=== PATIENT | male | born 1990 | race Caucasian/White ===

== ENCOUNTER 2017-04-03 15:29 | Inpatient (IN) | payer MEDICAID, OTHER ==
[~2017-04-03] VITALS: Ht 180.3 cm; Wt 96.7 kg
[2017-04-03] VITALS (27 sets, daily range): BP systolic 93–177; BP diastolic 55–111; PULSE 78–178; RESP 14–26; TEMP 98.6–100.7; O2SAT 95–100
[~2017-04-03 15:29] MED LIST: AMOX500T PO; Z.0.NO CURRENT MEDS
[2017-04-03] MEDS ORDERED: SODIUM CHLOR 0.9% 1000 ML INJ 1,000 ML IV ONE ×3 (15:41→17:15)
[2017-04-03] MEDS ORDERED: SODIUM CHLORIDE 0.9% FLUSH 10 ML FLUSH IVF PRN (15:45)
[2017-04-03] MEDS ORDERED: LORazepam 2 MG/ML VIAL IV PUSH ONE ×2 (15:45→16:00)
--- NOTE | 2017-04-03 15:50 | PD ---
HPI Chief Complaint: OD/ Ingestion Time Seen by Provider: 15:30 Travel History International Travel<30 days: No Contact w/Intl Traveler<30days: No Traveled to known affect area: No History of Present Illness HPI Patient comes in under [place] act by police after having a witnessed ingestion of unknown pills during a video snap chat with patient's . Please report this occurred about 1 hour prior to arrival. Patient became combative en route causing an abrasion to his right forehead. Patient is been vomiting. Patient is somewhat confused but is able to answer questions and knows he is at [place]. Please report that patient was found with a full bottle of generic Benadryl along 17 additional pills with no bottle round. It is suspected the patient took eighty-three 25 mg Benadryl's that were missing. [facility], [facility] Past Medical History Medical History: Denies Significant Hx Psychiatric: Yes Tetanus Vaccination: < 5 Years Past Surgical History Surgical History: No Previous Surgery Social History Alcohol Use: No Tobacco Use: No Substance Use: Yes (pot) Allergies-Medications (Allergen,Severity, Reaction): Coded Allergies: Sulfa (Sulfonamide Antibiotics) (Unverified Allergy, Severe, CHILDHOOD, CAN'T REMEMBER, 04/03/17) Reported Meds & Prescriptions Reported Meds & Active Scripts Active No Active Prescriptions or Reported Medications Review of Systems ROS Limitations: Altered Mental Status Except as stated in HPI: all other systems reviewed are Neg Physical Exam Exam Limitations: Altered Mental Status Narrative GENERAL: Well-developed, overly nourished, in no acute distress, and non-ill appearing. SKIN: Focused skin assessment warm and dry. Abrasion with small hematoma noted right forehead. HEAD: Atraumatic. Normocephalic. EYES: Pupils equal and round. EOMI. No scleral icterus. No injection or drainage. Nystagmus noted in all directions. ENT: No nasal bleeding or discharge. Mucous membranes pink and moist. NECK: Trachea midline. Supple. No nuclear rigidity. CARDIOVASCULAR: Tachycardia rate and rhythm. No murmur appreciated. RESPIRATORY: No accessory muscle use. No respiratory distress. Clear to auscultation. Breath sounds equal bilaterally. GASTROINTESTINAL: Abdomen soft, non-tender, nondistended, and no guarding. Hepatic and splenic margins not palpable. Normal bowel sounds 4. No pulsatile mass. MUSCULOSKELETAL: No obvious deformities. No clubbing. No cyanosis. No edema. Full range of motion. NEUROLOGICAL: Awake and alert. No obvious cranial nerve deficits. Motor grossly within normal limits. Slurring speech. Data Data Last Documented VS Vital Signs Date Time Temp Pulse Resp B/P Pulse Ox O2 Delivery O2 Flow Rate FiO2 04/03/17 18:17 99.0 118 20 153/92 99 04/03/17 16:00 Nasal Cannula 2 Orders Electrocardiogram (04/03/17 15:41) Complete Blood Count With Diff (04/03/17 15:41) Comprehensive Metabolic Panel (04/03/17 15:41) Prothrombin Time / Inr (Pt) (04/03/17 15:41) Act Partial Throm Time (Ptt) (04/03/17 15:41) Ct Brain W/O Iv Contrast(Rout) (04/03/17 15:41) Blood Glucose (04/03/17 15:41) Iv Access Insert/Monitor (04/03/17 15:41) Ecg Monitoring (04/03/17 15:41) Oximetry (04/03/17 15:41) Psych Screen (04/03/17 15:41) Sodium Chloride 0.9% Flush (Ns Flush) (04/03/17 15:45) Sodium Chlor 0.9% 1000 Ml Inj (Ns 1000 M (04/03/17 15:41) Call Poison Control (04/03/17 15:41) Drug Screen, Random Urine (04/03/17 15:41) Alcohol (Ethanol) (04/03/17 15:41) Salicylates (Aspirin) (04/03/17 15:41) Tylenol (Acetaminophen) (04/03/17 15:41) Lorazepam Inj (Ativan Inj) (04/03/17 15:45) Sodium Chlor 0.9% 1000 Ml Inj (Ns 1000 M (04/03/17 16:00) Lorazepam Inj (Ativan Inj) (04/03/17 16:00) Sodium Chlor 0.9% 1000 Ml Inj (Ns 1000 M (04/03/17 17:15) Potassium Chlor 20 Meq Premix (Kcl 20 Me (04/03/17 17:15) Admit Order (Ed Use Only) (04/03/17 18:16) Labs Laboratory Tests Test 04/03/17 04/03/17 04/03/17 14:10 16:00 16:30 Salicylates Level LESS THAN 1.7 MG/DL White Blood Count 16.9 TH/MM3 Red Blood Count 5.23 MIL/MM3 Hemoglobin 15.3 GM/DL Hematocrit 43.9 % Mean Corpuscular Volume 83.8 FL Mean Corpuscular Hemoglobin 29.3 PG Mean Corpuscular Hemoglobin 34.9 % Concent Red Cell Distribution Width 14.5 % Platelet Count 540 TH/MM3 Mean Platelet Volume 7.8 FL Neutrophils (%) (Auto) 67.2 % Lymphocytes (%) (Auto) 23.7 % Monocytes (%) (Auto) 8.5 % Eosinophils (%) (Auto) 0.3 % Basophils (%) (Auto) 0.3 % Neutrophils # (Auto) 11.4 TH/MM3 Lymphocytes # (Auto) 4.0 TH/MM3 Monocytes # (Auto) 1.4 TH/MM3 Eosinophils # (Auto) 0.1 TH/MM3 Basophils # (Auto) 0.1 TH/MM3 CBC Comment DIFF FINAL Differential Comment Prothrombin Time 11.0 SEC Prothromb Time International 1.0 RATIO Ratio Activated Partial 23.4 SEC Thromboplast Time Sodium Level 136 MEQ/L Potassium Level 3.1 MEQ/L Chloride Level 103 MEQ/L Carbon Dioxide Level 18.8 MEQ/L Anion Gap 14 MEQ/L Blood Urea Nitrogen 11 MG/DL Creatinine 1.56 MG/DL Estimat Glomerular Filtration 54 ML/MIN Rate Random Glucose 128 MG/DL Calcium Level 8.9 MG/DL Total Bilirubin 0.6 MG/DL Aspartate Amino Transf 16 U/L (AST/SGOT) Alanine Aminotransferase 32 U/L (ALT/SGPT) Alkaline Phosphatase 63 U/L Total Protein 8.5 GM/DL Albumin 4.4 GM/DL Acetaminophen Level LESS THAN 2.0 MCG/ML Ethyl Alcohol Level LESS THAN 3 MG/DL Urine Opiates Screen NEG Urine Barbiturates Screen NEG Urine Amphetamines Screen NEG Urine Benzodiazepines Screen NEG Urine Cocaine Screen NEG Urine Cannabinoids Screen POS MDM Medical Decision Making Medical Screen Exam Complete: Yes Emergency Medical Condition: Yes Interpretation(s) CT of the head read by the radiologist shows: Scalp hematoma. EKG reviewed by Dr. Rae shows SVT with ventricular rate of 172. Differential Diagnosis Intentional drug overdose, accidental overdose, electrolyte abnormality, other Narrative Course Patient was seen and examined. IV was established. Initial laboratory radiologic studies were ordered. 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 1550 discussed patient with Viola at poison control who recommends recommend supportive control with benzo and fluids. Along with checking labs. After speaking with poison control patient was given Ativan and IV fluids. Discussed patient with Dr. Rae, who saw and evaluated the patient and is in agreement with plan of care and disposition. 1630 patient reassessed vital signs are improving. 1700 patient reassessed her is improved. Nystagmus is improved. Patient is not answering questions currently. Responds to stimuli and light. Physician Communication Physician Communication [address] Corral, home health care worker on-call, who is agreeable to admit the patient. Diagnosis Primary Impression: Intentional diphenhydramine overdose Qualified Code: T45.0X2A - Intentional diphenhydramine overdose, initial encounter Admitting Information Admitting Physician Requests: Admit Scripts No Active Prescriptions or Reported Meds Condition: John Naik Apr 03, 2017 15:50
[2017-04-03 16:20] LABS: AUTOMATED NEUTROPHIL # 11.4 TH/MM3 (1.8-7.7); BASOPHIL # 0.1 TH/MM3 (0-0.2); BASOPHIL % 0.3 % (0.0-2.0); EOSINOPHIL # 0.1 TH/MM3 (0-0.4); EOSINOPHIL % 0.3 % (0.0-4.0); HEMATOCRIT 43.9 % (39.0-51.0); HEMO FLAGS DIFF FINAL; LYMPH % 23.7 % (9.0-44.0); MEAN CELL VOLUME 83.8 FL (80.0-100.0); MEAN CORPUSCULAR HEMOGLOBIN 29.3 PG (27.0-34.0); MEAN CORPUSCULAR HGB CONC 34.9 % (32.0-36.0); MONO % 8.5 % (0.0-8.0); NEUT % 67.2 % (16.0-70.0); PLATELET COUNT 540 TH/MM3 (150-450); RED BLOOD COUNT 5.23 MIL/MM3 (4.50-5.90); RED CELL DISTRIBUTION WIDTH 14.5 % (11.6-17.2); WHITE BLOOD COUNT 16.9 TH/MM3 (4.0-11.0)
[2017-04-03 16:28] LABS: APTT (PATIENT) 23.4 SEC (24.3-30.1)
[2017-04-03 16:42] LABS: ANION GAP 14 MEQ/L (5-15)
[2017-04-03 16:47] LABS: ALKALINE PHOSPHATASE 63 U/L (45-117); ALT (GPT) 32 U/L (12-78); AST (GOT) 16 U/L (15-37); BICARBONATE 18.8 MEQ/L (21.0-32.0); BLOOD UREA NITROGEN 11 MG/DL (7-18); CHLORIDE 103 MEQ/L (98-107); GLOMERULAR FILTRATION RATE 54 ML/MIN (>89); POTASSIUM 3.1 MEQ/L (3.5-5.1); SODIUM (NA) 136 MEQ/L (136-145); TOTAL BILIRUBIN ADULT 0.6 MG/DL (0.2-1.0)
[2017-04-03 16:51] LABS: ACETAMINOPHEN LESS THAN 2.0 MCG/ML (10.0-30.0); ALCOHOL LESS THAN 3 MG/DL (0-5)
[2017-04-03] MEDS ORDERED: POTASSIUM CHLOR 20 MEQ PREMIX 100 ML IV ONE (17:15)
--- NOTE | 2017-04-03 17:46 | RADRPT ---
EXAM DATE/TIME: 04/03/2017 17:21 [facility] COMPARISON: No previous studies available for comparison. INDICATIONS : Altered mental status RADIATION DOSE: 38.60 CTDIvol (mGy) MEDICAL HISTORY : None SURGICAL HISTORY : None. ENCOUNTER: Initial ACUITY: 1 day PAIN SCALE: Non-responsive LOCATION: cranial TECHNIQUE: Multiple contiguous axial images were obtained of the head. Using automated exposure control and adj ustment of the mA and/or kV according to patient size, radiation dose was kept as low as reasonably a chievable to obtain optimal diagnostic quality images. DICOM format image data is available electro nically for review and comparison. FINDINGS: There is no evidence for intracranial hemorrhage, mass effect, mass lesions, edema, or extra-axial fl uid collections. The visualized bony structures appear intact. The ventricles are normal size for t he patient's age. There are no signs of acute infarction for technique. There is scalp hematoma in t he right anterior frontal parietal junction. CONCLUSION: Scalp hematoma. Mario Betts MD on April 03, 2017 at 17:43 Board Certified Radiologist. This report was verified electronically.
--- NOTE | 2017-04-03 17:49 | PD ---
Physical Exam Narrative I, Dr. Rae, have reviewed the advance practice practitioner's documentation and am in agreement, met with the patient face to face, made the diagnosis, and the medical decision making was done by me. *My assessment and Findings: Benadryl overdose with anticholinergic toxidrome 26yo M with intentional benadryl overdose. Pt tachycardic, confused and hot to touch. IVF NS and ativan given. Total of 2mg IV ativan and NS IVF x3 given. Poison control called and recommended symptomatic treatment and benzodiazepine. Heart rate improved from 170s to sinus tachycardia in the 116bpm after NS IVF. Pt is currently maintaining his airway and saturating at 99%. Pt is confused but answering questions and following commands. Pt will need ICU monitoring and continue supportive treatment. Labs reviewed, leukocytosis at 16.9, likely reactive. K: 3.1, replaced with 20mE1 KCl. CT brain showed scalp hematoma. Pt was accepted to ICU under . Dr. Corral came to evaluate the patient and recommends endotracheal intubation. I agreed with his plan. Pt was intubated in the ED with RSI. Data Data Last Documented VS Vital Signs Date Time Temp Pulse Resp B/P (MAP) Pulse Ox O2 Delivery O2 Flow Rate FiO2 04/03/17 18:17 99.0 118 20 153/92 (112) 99 04/03/17 16:00 Nasal Cannula 2 Orders Orders Electrocardiogram (04/03/17 15:41) Complete Blood Count With Diff (04/03/17 15:41) Comprehensive Metabolic Panel (04/03/17 15:41) Prothrombin Time / Inr (Pt) (04/03/17 15:41) Act Partial Throm Time (Ptt) (04/03/17 15:41) Ct Brain W/O Iv Contrast(Rout) (04/03/17 15:41) Blood Glucose (04/03/17 15:41) Iv Access Insert/Monitor (04/03/17 15:41) Ecg Monitoring (04/03/17 15:41) Oximetry (04/03/17 15:41) Psych Screen (04/03/17 15:41) Sodium Chloride 0.9% Flush (Ns Flush) (04/03/17 15:45) Sodium Chlor 0.9% 1000 Ml Inj (Ns 1000 M (04/03/17 15:41) Call Poison Control (04/03/17 15:41) Drug Screen, Random Urine (04/03/17 15:41) Alcohol (Ethanol) (04/03/17 15:41) Salicylates (Aspirin) (04/03/17 15:41) Tylenol (Acetaminophen) (04/03/17 15:41) Lorazepam Inj (Ativan Inj) (04/03/17 15:45) Sodium Chlor 0.9% 1000 Ml Inj (Ns 1000 M (04/03/17 16:00) Lorazepam Inj (Ativan Inj) (04/03/17 16:00) Sodium Chlor 0.9% 1000 Ml Inj (Ns 1000 M (04/03/17 17:15) Potassium Chlor 20 Meq Premix (Kcl 20 Me (04/03/17 17:15) Admit Order (Ed Use Only) (04/03/17 18:16) Labs Laboratory Tests Test 04/03/17 14:10 04/03/17 16:00 04/03/17 16:30 Salicylates Level LESS THAN 1.7 MG/DL White Blood Count 16.9 TH/MM3 Red Blood Count 5.23 MIL/MM3 Hemoglobin 15.3 GM/DL Hematocrit 43.9 % Mean Corpuscular Volume 83.8 FL Mean Corpuscular Hemoglobin 29.3 PG Mean Corpuscular Hemoglobin Concent 34.9 % Red Cell Distribution Width 14.5 % Platelet Count 540 TH/MM3 Mean Platelet Volume 7.8 FL Neutrophils (%) (Auto) 67.2 % Lymphocytes (%) (Auto) 23.7 % Monocytes (%) (Auto) 8.5 % Eosinophils (%) (Auto) 0.3 % Basophils (%) (Auto) 0.3 % Neutrophils # (Auto) 11.4 TH/MM3 Lymphocytes # (Auto) 4.0 TH/MM3 Monocytes # (Auto) 1.4 TH/MM3 Eosinophils # (Auto) 0.1 TH/MM3 Basophils # (Auto) 0.1 TH/MM3 CBC Comment DIFF FINAL Differential Comment Prothrombin Time 11.0 SEC Prothromb Time International Ratio 1.0 RATIO Activated Partial Thromboplast Time 23.4 SEC Blood Urea Nitrogen 11 MG/DL Creatinine 1.56 MG/DL Random Glucose 128 MG/DL Total Protein 8.5 GM/DL Albumin 4.4 GM/DL Calcium Level 8.9 MG/DL Alkaline Phosphatase 63 U/L Aspartate Amino Transf (AST/SGOT) 16 U/L Alanine Aminotransferase (ALT/SGPT) 32 U/L Total Bilirubin 0.6 MG/DL Sodium Level 136 MEQ/L Potassium Level 3.1 MEQ/L Chloride Level 103 MEQ/L Carbon Dioxide Level 18.8 MEQ/L Anion Gap 14 MEQ/L Estimat Glomerular Filtration Rate 54 ML/MIN Phosphorus Level 2.0 MG/DL Magnesium Level 2.1 MG/DL Total Creatine Kinase 108 U/L Acetaminophen Level LESS THAN 2.0 MCG/ML Ethyl Alcohol Level LESS THAN 3 MG/DL Urine Opiates Screen NEG Urine Barbiturates Screen NEG Urine Amphetamines Screen NEG Urine Benzodiazepines Screen NEG Urine Cocaine Screen NEG Urine Cannabinoids Screen POS MDM Supervised Visit with KATYA: Yes Interpretation(s) EKG showed SVT at 172bpm. Narrow QRS. However, pt's heart rate was improving on the IVF to 140s. Critical Care Narrative Aggregate critical care time was 60 minutes. Time to perform other separately billable procedures was not included in the critical care time. My time did not include minutes spent treating any other patients simultaneously or on activities that did not directly contribute to the patient's treatment. The services I provided to this patient were to treat and/or prevent clinically significant deterioration that could result in: cardiovascular collapse or . I provided critical care services requiring my management, as noted below: Chart data review, documentation time, medication orders and management, vital sign assessments/reviewing monitor data, ordering and reviewing lab tests, ordering and interpreting/reviewing x-rays and diagnostic studies, care of the patient and discussion of the patient with the admitting physicians. Procedures Procedure Narrative The patient was put in optimal position for the procedure. Rapid sequence intubation was initiated by me using 30 milligrams of etomidate IV and 50milligrams of rocuronium IV. The patient was intubated with a [-] cuffed endotracheal tube. Tube placement was confirmed by visualization of the tube and balloon passing through the cords, capnometry and subsequent chest x-ray. Breath sounds were equal and well aerated bilaterally postintubation. No breath sounds over stomach. Patient tolerated procedure well. Diagnosis Primary Impression: Intentional diphenhydramine overdose Admitting Information Admitting Physician Requests: Admit Scripts No Active Prescriptions or Reported Meds Estrellita Rae DO Apr 03, 2017 17:49
[2017-04-03] MEDS ORDERED: RESP: ALBUTEROL 2.5 MG/IPRATROPIUM 0.5 MG NEB (PRN) INH (18:45)
[2017-04-03] MEDS ORDERED: CHLORHEXIDINE GLUCONATE 2 % 1 PACK (2 CLOTHS) TOP PRN (18:45)
[2017-04-03] MEDS ORDERED: LORazepam 2 MG/ML VIAL IV PRN (18:45)
[2017-04-03] MEDS ORDERED: MORPHINE SULFATE 4 MG/ML INJ IV PRN (18:45)
[2017-04-03] MEDS ORDERED: LACTULOSE SYRUP 20 GM/30 ML CUP PO PRN (18:45)
[2017-04-03] MEDS ORDERED: MISCELLANEOUS NURSING INFORMATION XX SCH (18:45)
[2017-04-03] MEDS ORDERED: BISACODYL 10 MG SUPP RECTAL PRN (18:45)
[2017-04-03] MEDS ORDERED: SENNOSIDES 8.6 MG TAB PO PRN (18:45)
[2017-04-03] MEDS ORDERED: MAGNESIUM HYDROXIDE SUSP 30 ML CUP PO PRN (18:45)
[2017-04-03] MEDS ORDERED: ACETAMINOPHEN 325 MG TAB PO PRN (18:45)
[2017-04-03] MEDS ORDERED: ETOMIDATE 20 MG/10 ML VIAL IV PUSH ONE (19:00)
[2017-04-03] MEDS ORDERED: ROCURONIUM INJ 50 MG/5 ML VIAL IV ONE (19:00)
[2017-04-03] MEDS ORDERED: PROPOFOL 1000 MG/100 ML INJ 100 ML ONE (19:12)
[2017-04-03] MEDS ORDERED: MIDAZOLAM 100 MG/100 ML INJ 100 ML ONE (19:16)
--- NOTE | 2017-04-03 19:58 | HHI.HP ---
HPI Service Critical Care Medicine Primary Care Physician Unknown Admission Diagnosis intentional Benadryl overdose, suicidal ideation Diagnosis: Travel History International Travel<30 Days: No Contact w/Intl Traveler <30 Da: No Traveled to Known Affected Are: No History of Present Illness 26 y/o man intentionally ingested about 83 benedryl tabs about an hour prior to arrival. His witnessed the act on snap chat. He arrives with tachycardia, confusion, tremors, and hyper-reflexia. There is an abrasion on the right side of his forehead. I recommended intubation after examining the patient because of risk of impending seizures. Review of Systems ROS Confused, feels jittery. No family. Past Family Social History Allergies: Coded Allergies: Sulfa (Sulfonamide Antibiotics) (Unverified Allergy, Severe, CHILDHOOD, CAN'T REMEMBER, 04/03/17) Past Medical History Past Medical History Medical History: Denies Significant Hx Psychiatric: Yes Tetanus Vaccination: < 5 Years Past Surgical History Surgical History: No Previous Surgery Social History Alcohol Use: No Tobacco Use: No Substance Use: Yes (pot) Allergies-Medications Allergies-Medications (Allergen,Severity, Reaction): Coded Allergies: Sulfa (Sulfonamide Antibiotics) (Unverified Allergy, Severe, CHILDHOOD, CAN'T REMEMBER, 04/03/17) Reported Meds & Prescriptions Reported Meds & Active Scripts Active No Active Prescriptions or Reported Medications Physical Exam Vital Signs Vital Signs Date Time Temp Pulse Resp B/P Pulse Ox O2 Delivery O2 Flow Rate FiO2 04/03/17 18:28 116 20 139/88 99 04/03/17 18:17 99.0 118 20 153/92 99 04/03/17 16:22 138 24 153/82 96 04/03/17 16:00 100.7 170 25 100 Nasal Cannula 2 04/03/17 15:51 100 Room Air 04/03/17 15:36 100.7 178 26 163/88 98 Physical Exam P 121, BP 142/92, R 22, sats 92% Head: Superficial abrasion right forehead. Neck: Supple, airway widely patent. Lungs: Clear, tachypneic. Heart: Tachycardia, NL S1S2, + JVD straining. Abdomen: Soft, no guarding. Extremities: Warm, dry, well perfused. Neuro: Moves 4 limbs with extensive tremors. DTRs 3+. no clonus. Toes down roma. Pupils 3 mm, react to 2 only. Conversant, agitated. Laboratory Laboratory Tests Test 04/03/17 04/03/17 04/03/17 14:10 16:00 16:30 Salicylates Level LESS THAN 1.7 White Blood Count 16.9 Red Blood Count 5.23 Hemoglobin 15.3 Hematocrit 43.9 Mean Corpuscular Volume 83.8 Mean Corpuscular Hemoglobin 29.3 Mean Corpuscular Hemoglobin 34.9 Concent Red Cell Distribution Width 14.5 Platelet Count 540 Mean Platelet Volume 7.8 Neutrophils (%) (Auto) 67.2 Lymphocytes (%) (Auto) 23.7 Monocytes (%) (Auto) 8.5 Eosinophils (%) (Auto) 0.3 Basophils (%) (Auto) 0.3 Neutrophils # (Auto) 11.4 Lymphocytes # (Auto) 4.0 Monocytes # (Auto) 1.4 Eosinophils # (Auto) 0.1 Basophils # (Auto) 0.1 CBC Comment DIFF FINAL Differential Comment Prothrombin Time 11.0 Prothromb Time International 1.0 Ratio Activated Partial 23.4 Thromboplast Time Sodium Level 136 Potassium Level 3.1 Chloride Level 103 Carbon Dioxide Level 18.8 Anion Gap 14 Blood Urea Nitrogen 11 Creatinine 1.56 Estimat Glomerular Filtration 54 Rate Random Glucose 128 Calcium Level 8.9 Total Bilirubin 0.6 Aspartate Amino Transf 16 (AST/SGOT) Alanine Aminotransferase 32 (ALT/SGPT) Alkaline Phosphatase 63 Total Protein 8.5 Albumin 4.4 Acetaminophen Level LESS THAN 2.0 Ethyl Alcohol Level LESS THAN 3 Urine Opiates Screen NEG Urine Barbiturates Screen NEG Urine Amphetamines Screen NEG Urine Benzodiazepines Screen NEG Urine Cocaine Screen NEG Urine Cannabinoids Screen POS Result Diagram: 04/03/17 1600 04/03/17 1600 Assessment and Plan Assessment and Plan Assessment: 1. Toxic encephalopathy. 2. Intentional drug OD. 3. Suicidal ideation. 4. Respiratory Failure. Plan: 1. PRVC mode. 2. Ativan breakthrough agitation or seizures. 3. Propofol continuous sedation. 4. Cardiac markers. 5. Creatine kinase levels. 6. SCDs. 7. CT scan head. 8. Pepcid. Overall impression: Critically ill with life-threatening amount ingestion of benadryl requiring seizure precautions and mechanical ventilation. Critical Care 40 mins aside from procedures. Jeevan Corral MD Apr 03, 2017 19:58
[2017-04-03] MEDS: CHLORHEXIDINE 0.12% (ORAL KIT) 15 ML CUP MT SCH (20:00)
[2017-04-03] MEDS: MIDAZOLAM 100 MG/100 ML INJ 100 ML IV SCH (20:01)
--- NOTE | 2017-04-03 20:04 | RADRPT ---
EXAM DATE/TIME: 04/03/2017 19:31 [facility] COMPARISON: No previous studies available for comparison. INDICATIONS : Altered mental status. MEDICAL HISTORY : None. SURGICAL HISTORY : None. ENCOUNTER: Initial ACUITY: 1 day PAIN SCORE: Non-responsive. LOCATION: Bilateral chest FINDINGS: ET tube is present with tip overlapping approximately 2-3 cm above the anthony. NG tube is present wit h tip in the stomach. Mild left lung base atelectasis and/or infiltrate is seen. Small left pleural e ffusion maybe present and there may be slight degree of perivascular pulmonary edema as well. No defi nite pneumothorax is seen for technique. Heart and mediastinum are unremarkable for technique. CONCLUSION: Possible mild distal pulmonary edema and left lung base infiltrate is present with questionable left pleural effusion. Mario Betts MD on April 03, 2017 at 20:02 Board Certified Radiologist. This report was verified electronically.
[2017-04-03] MEDS: SODIUM CHLOR 0.9% 1000 ML INJ 1,000 ML IV SCH (20:17)
[2017-04-03] MEDS: ENOXAPARIN SODIUM 40 MG/0.4 ML SYRINGE SQ SCH (20:17)
[2017-04-03] MEDS: DOCUSATE SODIUM 50 MG/SENNA 8.6 MG TAB PO SCH (20:18)
[2017-04-03 21:11] LABS: BLOOD GAS BASE EXCESS -3.8 mmol/L (-2-2); BLOOD GAS HCO3 20 mmol/L (22-26); BLOOD GAS METHEMOGLOBIN 0.7 % (0-2); BLOOD GAS O2 HGB SATURATION 97 % (90-100); BLOOD GAS PCO2 35 mmHg (38-42); BLOOD GAS PO2 112 mmHG (61-120); BLOOD GAS TOTAL HGB 13.1 G/DL (12.0-16.0); CRITICAL VALUE NO; OXYGEN DEVICE VENTILATOR; TEMP CORR TO 98.6
[2017-04-03 21:12] LABS: DRAW SITE LT RADIAL; FIO2 50 %; NUMBER OF ARTERIAL PUNCTURES 1; STAT YES; ULNAR PULSE PRESENT; VENT SETTINGS PRVC/AC
[2017-04-03 21:29] LABS: MAGNESIUM 2.1 MG/DL (1.5-2.5)
[2017-04-03] MEDS: PROPOFOL 1000 MG/100 ML INJ 100 ML IV SCH (23:34)
[2017-04-04] VITALS (39 sets, daily range): BP systolic 100–136; BP diastolic 65–91; PULSE 79–125; RESP 14–32; TEMP 96.9–99.3; O2SAT 94–100
[2017-04-04] MEDS: CHLORHEXIDINE GLUCONATE 2 % 1 PACK (2 CLOTHS) TOP SCH
[2017-04-04 03:20] LABS: AUTOMATED NEUTROPHIL # 7.8 TH/MM3 (1.8-7.7); BASOPHIL % 0.2 % (0.0-2.0); EOSINOPHIL % 0.4 % (0.0-4.0); HEMATOCRIT 37.2 % (39.0-51.0); HEMO FLAGS DIFF FINAL; LYMPH % 19.6 % (9.0-44.0); LYMPHOCYTE # 2.2 TH/MM3 (1.0-4.8); MEAN CELL VOLUME 84.4 FL (80.0-100.0); MEAN CORPUSCULAR HEMOGLOBIN 27.9 PG (27.0-34.0); MONO % 10.4 % (0.0-8.0); NEUT % 69.4 % (16.0-70.0); PLATELET COUNT 367 TH/MM3 (150-450); RED BLOOD COUNT 4.41 MIL/MM3 (4.50-5.90); RED CELL DISTRIBUTION WIDTH 14.5 % (11.6-17.2); WHITE BLOOD COUNT 11.2 TH/MM3 (4.0-11.0)
[2017-04-04 03:43] LABS: BICARBONATE 23.9 MEQ/L (21.0-32.0); MAGNESIUM 1.9 MG/DL (1.5-2.5); POTASSIUM 3.7 MEQ/L (3.5-5.1)
[2017-04-04] MEDS: SODIUM CHLOR 0.9% 1000 ML INJ 1,000 ML IV SCH ×4 (03:49→22:47)
[2017-04-04] MEDS: MIDAZOLAM 100 MG/100 ML INJ 100 ML IV SCH (03:50)
[2017-04-04 05:32] LABS: BLOOD GAS BASE EXCESS -2.1 mmol/L (-2-2); BLOOD GAS CARBOXYHEMOGLOBIN 1.4 % (0-4); BLOOD GAS HCO3 22 mmol/L (22-26); BLOOD GAS METHEMOGLOBIN 1.3 % (0-2); BLOOD GAS O2 HGB SATURATION 95 % (90-100); BLOOD GAS OXYGEN CONTENT 16.3 Vol % (12.0-20.0); BLOOD GAS PCO2 37 mmHg (38-42); BLOOD GAS PO2 97 mmHg (61-120); BLOOD GAS TOTAL HGB 12.2 G/DL (12.0-16.0); TEMP CORR TO 98.6
[2017-04-04 05:33] LABS: CRITICAL VALUE NO; DRAW SITE RT RADIAL; FIO2 40 %; NUMBER OF ARTERIAL PUNCTURES 1; OXYGEN DEVICE VENTILATOR; STAT NO; ULNAR PULSE PRESENT; VENT SETTINGS PRVC/AC14/500/5PEEP/
[2017-04-04] MEDS: PROPOFOL 1000 MG/100 ML INJ 100 ML IV SCH (05:43)
--- NOTE | 2017-04-04 06:50 | HHI.CCPN ---
Subjective Remarks/Hospital Course 26 y/o man intentionally ingested about 83 benedryl tabs about an hour prior to arrival. His witnessed the act on snap chat. He arrives with tachycardia, confusion, tremors, and hyper-reflexia. There is an abrasion on the right side of his forehead. I recommended intubation after examining the patient because of risk of impending seizures. Subjective: 04/04: Afebrile. Noted sinus tachycardia 120's. Patient awake alert. Past CPAP trials SBT parameters within normal limits. Plan for extubation. Objective Vital Signs Date Time Temp Pulse Resp B/P Pulse Ox O2 Delivery O2 Flow Rate FiO2 04/04/17 06:00 88 04/04/17 04:45 97.9 23 04/04/17 04:07 100 40 04/04/17 04:00 117/88 04/03/17 20:42 Ventilator 04/03/17 16:00 2 Intake and Output 04/03/17 04/03/17 04/04/17 08:00 16:00 00:00 Intake Total 4000 ml Balance 4000 ml Result Diagram: 04/04/17 0256 04/04/17 0256 Other Results Laboratory Tests Test 04/03/17 04/04/17 20:13 05:19 Blood Gas Puncture Site LT RADIAL RT RADIAL Blood Gas Patient Temperature 98.6 98.6 Blood Gas HCO3 20 mmol/L 22 mmol/L (22-26) (22-26) Blood Gas Base Excess -3.8 mmol/L -2.1 mmol/L (-2-2) (-2-2) Blood Gas Oxygen Saturation 97 % (90-100) 95 % (90-100) Arterial Blood pH 7.39 7.40 (7.380-7.420) (7.380-7.420) Arterial Blood Partial 35 mmHg (38-42) 37 mmHg (38-42) Pressure CO2 Arterial Blood Partial 112 mmHG 97 mmHg Pressure O2 (61-120) (61-120) Arterial Blood Oxygen Content 18.0 Vol % 16.3 Vol % (12.0-20.0) (12.0-20.0) Arterial Blood 1.0 % (0-4) 1.4 % (0-4) Carboxyhemoglobin Arterial Blood Methemoglobin 0.7 % (0-2) 1.3 % (0-2) Blood Gas Hemoglobin 13.1 G/DL 12.2 G/DL (12.0-16.0) (12.0-16.0) Oxygen Delivery Device VENTILATOR VENTILATOR Blood Gas Ventilator Setting PRVC/AC PRVC/AC14/500/5PEEP/ Blood Gas Inspired Oxygen 50 % 40 % Objective Remarks P 120, BP 142/92, R 22, sats 92% Head: Superficial abrasion right forehead. Neck: Supple, airway widely patent. Lungs: Clear, tachypneic. Heart: Tachycardia, NL S1S2, + JVD straining. Abdomen: Soft, no guarding. Extremities: Warm, dry, well perfused. Neuro: GCS 14 T. Awake alert, following commands appropriately Urinary Catheter: Yes Assessment to: Remove A/P Assessment and Plan Assessment: 1. Toxic encephalopathy. 2. Intentional drug OD. 3. Suicidal ideation. 4. Respiratory Failure- resolved Plan: 1. Wean to extubate 2. Ativan breakthrough agitation or seizures. 3. Discontinue Propofol continuous sedation. 4. Cardiac markers. 5. Monitor Creatine kinase levels. 6. SCDs. 7. 8/18 -CT scan head- scalp hematoma 8. Pepcid. 9. Psych consult Overall impression: Critically ill with life-threatening amount ingestion of benadryl requiring seizure precautions . Plan for extubation and advancement of diet. Discussed with SENIOR ENLISTED ADVISOR at bedside Level 2 Physician Mabel Huff MD Apr 04, 2017 06:50
[2017-04-04] MEDS: CHLORHEXIDINE 0.12% (ORAL KIT) 15 ML CUP MT SCH ×2 (08:00→20:00)
[2017-04-04] MEDS: DOCUSATE SODIUM 50 MG/SENNA 8.6 MG TAB PO SCH ×2 (09:00→20:29)
[2017-04-04] MEDS: PANTOPRAZOLE SODIUM 40 MG VIAL IV SCH (09:00)
--- NOTE | 2017-04-04 15:04 | EKG ---
Date Performed: 04/03/2017 Time Performed: 15:50:39 PTAGE: 26 years EKG: SUPRAVENTRICULAR TACHYCARDIA NONSPECIFIC ST & T-WAVE ABNORMALITY ABNORMAL RHYTHM ECG NO PREVIOUS TRACING DOCTOR: Alber Moon Interpretating Date/Time 04/04/2017 15:04:32
[2017-04-04] MEDS: ENOXAPARIN SODIUM 40 MG/0.4 ML SYRINGE SQ SCH (20:28)
[2017-04-05] VITALS (24 sets, daily range): BP systolic 119–129; BP diastolic 77–80; PULSE 90–103; RESP 20–32; TEMP 99.3–99.5; O2SAT 95–98
[2017-04-05] MEDS: CHLORHEXIDINE GLUCONATE 2 % 1 PACK (2 CLOTHS) TOP SCH (04:00)
[2017-04-05 05:43] LABS: HEMATOCRIT 41.8 % (39.0-51.0); MEAN CELL VOLUME 84.1 FL (80.0-100.0); MEAN CORPUSCULAR HEMOGLOBIN 27.8 PG (27.0-34.0); MEAN CORPUSCULAR HGB CONC 33.1 % (32.0-36.0); PLATELET COUNT 391 TH/MM3 (150-450); RED BLOOD COUNT 4.97 MIL/MM3 (4.50-5.90); RED CELL DISTRIBUTION WIDTH 14.5 % (11.6-17.2); REVIEW FLAG FINAL; WHITE BLOOD COUNT 12.3 TH/MM3 (4.0-11.0)
[2017-04-05 06:19] LABS: BICARBONATE 23.9 MEQ/L (21.0-32.0); MAGNESIUM 1.9 MG/DL (1.5-2.5); POTASSIUM 3.1 MEQ/L (3.5-5.1)
[2017-04-05] MEDS: CHLORHEXIDINE 0.12% (ORAL KIT) 15 ML CUP MT SCH (08:00)
[2017-04-05] MEDS: DOCUSATE SODIUM 50 MG/SENNA 8.6 MG TAB PO SCH (08:51)
[2017-04-05] MEDS: PANTOPRAZOLE SODIUM 40 MG VIAL IV SCH (08:51)
[2017-04-05] MEDS ORDERED: POTASSIUM CHLORIDE 20 MEQ CONTROLLED RELEASE TAB PO ONE (09:30)
--- NOTE | 2017-04-05 09:48 | HHI.PR ---
Subjective Remarks Pt tells me that he is feeling well. He denies any CP/SOB/N/V. Ate breakfast. when asked why he tooks so many benadryl, he states "I don't know" and lowers his eyes and remains quiet. Objective Vitals Vital Signs Date Time Temp Pulse Resp B/P (MAP) Pulse Ox O2 Delivery O2 Flow Rate FiO2 04/05/17 09:32 97 Nasal Cannula 2.00 04/05/17 06:00 98 04/05/17 04:45 100.6 96 27 96 04/05/17 04:30 100.6 101 29 97 04/05/17 04:15 100.6 103 25 98 04/05/17 04:00 90 04/05/17 04:00 99.3 04/05/17 04:00 100.6 90 25 128/79 (95) 98 04/05/17 03:45 100.6 92 26 98 04/05/17 03:30 100.6 96 25 97 04/05/17 03:15 100.6 96 29 96 04/05/17 03:00 100.6 94 24 124/77 (93) 96 04/05/17 02:45 100.6 96 26 97 04/05/17 02:30 100.6 100 22 97 04/05/17 02:15 100.6 98 32 96 04/05/17 02:00 100.4 97 23 119/78 (92) 95 04/05/17 02:00 97 04/05/17 01:56 100.4 95 26 121/79 (93) 96 04/05/17 01:45 100.4 96 27 95 04/05/17 01:30 100.4 93 25 97 04/05/17 01:15 100.4 94 27 96 04/05/17 01:00 100.6 95 26 95 04/05/17 00:45 100.6 97 26 96 04/05/17 00:30 100.8 96 26 96 04/05/17 00:00 99.3 21 04/05/17 00:00 95 04/04/17 22:00 101 04/04/17 20:01 97 Nasal Cannula 2.00 04/04/17 20:00 99.2 20 04/04/17 20:00 118 04/04/17 19:45 100.6 119 23 04/04/17 19:45 100.6 119 23 04/04/17 19:30 100.6 119 19 04/04/17 19:15 100.6 125 29 04/04/17 19:00 100.4 115 25 133/83 (100) 04/04/17 18:45 100.4 114 29 04/04/17 18:00 104 04/04/17 16:00 115 04/04/17 16:00 99.0 115 21 135/89 (104) 94 04/04/17 14:00 111 04/04/17 12:00 112 04/04/17 12:00 99.3 112 16 136/91 (106) 95 04/04/17 11:25 40 04/04/17 11:25 99 Nasal Cannula 2 04/04/17 11:25 99 Nasal Cannula 2.00 04/04/17 10:00 120 I/O 04/04/17 04/04/17 04/04/17 04/05/17 04/05/17 04/05/17 07:00 15:00 23:00 07:00 15:00 23:00 Intake Total 1145 ml 1255 ml 917 ml 240 ml Output Total 725 ml 1575 ml 2150 ml Balance 420 ml -320 ml 917 ml -1910 ml Intake Oral 240 ml IV Total 1145 ml 1255 ml 917 ml Output Urine Total 725 ml 1575 ml 2150 ml Result Diagram: 04/05/17 0420 04/05/17 0420 Imaging Last Impressions Head CT 04/03/17 1541 Signed Impressions: Service Date/Time: Monday, April 03, 2017 17:21 - CONCLUSION: Scalp hematoma. Mario Betts MD Chest X-Ray 04/03/17 0000 Signed Impressions: Service Date/Time: Monday, April 03, 2017 19:31 - CONCLUSION: Possible mild distal pulmonary edema and left lung base infiltrate is present with questionable left pleural effusion. Mario Betts MD Objective Remarks Head: Superficial abrasion right forehead. Neck: Supple, airway widely patent. Lungs: Clear to auscultation, no wheezing. Heart: Tachycardia, regular. no obvious murmurs. Abdomen: Soft, no guarding. non tender Extremities: Warm, dry, well perfused. Neuro: Awake alert, following commands appropriately, answers questions Psych: looks sad A/P Assessment and Plan 1. Toxic encephalopathy. Improving. Answers questions and follows commands. 2. Intentional drug OD. ativan prn breakthrough agitation/sz, pt is now calm and not agitated. off propofol. extubated. cpk wnl. psych eval was done, discussed w Dr. Godinez and he has requested that pt be transferred to med/ psych floor. leukocytosis trending down. Tmax 100.6 most likely from overdose due to anticholinergic intoxication. this also includes the tachycardia which is mild, and possible urinary retention. will d/c barr for now and do a voiding trial, if has difficulty voiding, he will need barr and voiding trial at the psychiatric facility 3. Suicidal ideation. psych following, [facility] 4. Respiratory Failure- resolved 5. 04/02 -CT scan head- scalp hematoma. stable. Discharge [facility] condition: stable activity adlib- per med/psych floor requirements regular diet. Adriana Albert MD Apr 05, 2017 09:48
[2017-04-05] MEDS ORDERED: POTASSIUM PHOSPHATE MONOBASIC 500 MG TAB PO ONE (10:00)
--- NOTE | 2017-04-05 11:06 | PD.PSY.CON ---
Provisional Diagnosis Admission Date Apr 03, 2017 at 18:18 [place] I. Major depressive disorder, first episode, severe, without psychosis [place] II. Deferred [place] III. Anticholinergics overdose [place] IV. Family dynamic conflicts [place] V. 55 History of Present Illness Service Psychiatry Consult Requested By Reason for Consult Suicidal attempt Primary Care Physician Unknown HPI The patient is a 26-year-old man, domiciled in [place] with his , he has 4 kids, he is now unemployed, without any previous psychiatric history, no previous suicidal attempts, no previous psychiatric hospitalizations, cannabis use disorder, no significant medical history, who was brought to the ER because he intentionally ingested about 83 benedryl tabs about an hour prior to arrival with the intention is to kill himself. His witnessed the act on snap chat. He arrives with tachycardia, confusion, tremors, and hyper-reflexia. There is an abrasion on the right side of his forehead made when the police threw him on the floor due to aggressive and combativeness. On the psychiatric evaluation today in the ICU, patient reports that in the last months, especially in the last 2 weeks he has been increasingly depressed in the context of family problems, unemployment, "and other multiple things". Patient says that "there is a lot of things going on my life, I feel very overwhelmed, and I feel like everything is going down the hill and nobody can save me". He says for the last 2 weeks he has been feeling completely hopeless, helpless, with very decreased self-esteem, with permanent sense of guiltiness, poor sleep, weight loss, no appetite and continues and intrusive suicidal thoughts that led to his current suicidal attempt. Patient stated that they have the suicidal thinking he had an argument with his . Patient says that he has been cheating on his with another woman "and I also had a huge problem with that woman that they". "I thought that I was losing everything and I prefer to kill myself". At this moment the patient reports sadness, remorse and he feels "regretful". He is to have suicidal thoughts, but no plan. Patient is willing to accept help and be admitted in psychiatry for treatment. He denies visual and auditory hallucinations. He denies homicidal ideation. Patient is oriented 3 , no attention deficit, no fluctuation of consciousness, no delirium, no gross cognitive impairment present. Patient reports daily use of marijuana, occasional use of alcohol. Review of Systems Constitutional: DENIES: Diaphoretic episodes, Fatigue, Fever, Weight gain, Weight loss, Chills, Dizziness, Change in appetite, Night Sweats Endocrine: DENIES: Heat/cold intolerance, Polydipsia, Polyuria, Polyphagia Eyes: DENIES: Blurred vision, Diplopia, Eye inflammation, Eye pain, Vision loss , Photosensitivity, Double Vision Ears, nose, mouth, throat: DENIES: Tinnitus, Hearing loss, Vertigo, Nasal discharge, Oral lesions, Throat pain, Hoarseness, Ear Pain, Running Nose, Epistaxis, Sinus Pain, Toothache, Odynophagia Cardiovascular: DENIES: Chest pain, Palpitations, Syncope, Dyspnea on Exertion , PND, Lower Extremity Edema, Orthopnea, Claudication Gastrointestinal: DENIES: Abdominal pain, Black stools, Bloody stools, Constipation, Diarrhea, Nausea, Vomiting, Difficulty Swallowing, Anorexia Musculoskeletal: DENIES: Joint pain, Muscle aches, Stiffness, Joint Swelling, Back pain, Neck pain Integumentary: DENIES: Abnormal pigmentation, Nail changes, Pruritus, Rash Hematologic/lymphatic: DENIES: Bruising, Lymphadenopathy Immunologic/allergic: DENIES: Eczema, Urticaria Psychiatric: COMPLAINS OF: Depression, Suicidal Ideation, DENIES: Anxiety, Confusion, Mood changes, Hallucinations, Agitation, Homicidal Ideation, Delusions Past Family Social History Coded Allergies: Sulfa (Sulfonamide Antibiotics) (Unverified Allergy, Severe, CHILDHOOD, CAN'T REMEMBER, 04/03/17) No Active Prescriptions or Reported Meds Current Medications Medications (Trade) Dose Ordered Sig/Aram Route Start Time Stop Time Status Last Admin (NS Flush) 2 ml UNSCH PRN IVF 04/03/17 15:45 Sodium Chloride 1,000 ml @ 125 mls/hr Q8H IV 04/03/17 18:44 04/04/17 22:47 (Tylenol) 650 mg Q6H PRN PO 04/03/17 18:45 (Morphine Inj) 2 mg Q2H PRN IV 04/03/17 18:45 (Protonix Inj) 40 mg DAILY IV 04/04/17 09:00 04/05/17 08:51 (Ativan Inj) 1 mg Q30M PRN IV 04/03/17 18:45 04/03/17 20:45 (Duoneb Neb) 1 ampule Q4HR NEB PRN INH 04/03/17 18:45 (Lovenox Inj) 40 mg Q24H SQ 04/03/17 20:00 04/04/17 20:28 Miscellaneous Information 1 [id number] XX 04/03/17 18:45 (Chlorhexidine 2% Cloth) 3 pack Taper DAILY@04 TOP 04/04/17 04:00 03/31/18 03:59 04/04/17 00:00 (Chlorhexidine 2% Cloth) 3 pack UNSCH PRN TOP 04/03/17 18:45 (Irma-Colace) 1 tab BID PO 04/03/17 21:00 04/05/17 08:51 (Milk Of Magnesia Liq) 30 ml Q12H PRN PO 04/03/17 18:45 (Senokot) 17.2 mg Q12H PRN PO 04/03/17 18:45 (Dulcolax Supp) 10 mg DAILY PRN RECTAL 04/03/17 18:45 (Lactulose Liq) 30 ml DAILY PRN PO 04/03/17 18:45 Midazolam HCl 100 ml @ 0 mls/hr CONTINUOUS IV 04/03/17 19:15 04/04/17 03:50 (Peridex 0.12% Liq) 15 ml BID@08,20 MT 04/03/17 20:00 04/04/17 08:00 Propofol 100 ml @ 0 mls/hr TITRATE IV 04/03/17 20:00 04/04/17 05:43 Family History Denies family psychiatric history Social History This was born and raised in [place], he lives in [place] his and 4 kids, employed at the moment, highest level of education is high school Patient's Strengths (min. 2) verbal communication Physical Exam No tremors, no EPS, no psychomotor retardation or agitation, no withdrawal, no gait disturbance present Vital Signs Vital Signs Date Time Temp Pulse Resp B/P (MAP) Pulse Ox O2 Delivery O2 Flow Rate FiO2 04/05/17 10:00 103 04/05/17 09:32 97 Nasal Cannula 2.00 04/05/17 08:00 99.5 20 129/80 (96) 04/04/17 11:25 40 I/O 04/05/17 04/05/1704/06/17 08:00 16:00 00:00 Intake Total 240 ml Output Total 2150 ml Balance -1910 ml Lab Results Result Diagram: 04/05/17 0420 04/05/17 0420 Imaging Last Impressions Head CT 04/03/17 1541 Signed Impressions: Service Date/Time: Monday, April 03, 2017 17:21 - CONCLUSION: Scalp hematoma. Mario Betts MD Chest X-Ray 04/03/17 0000 Signed Impressions: Service Date/Time: Monday, April 03, 2017 19:31 - CONCLUSION: Possible mild distal pulmonary edema and left lung base infiltrate is present with questionable left pleural effusion. Mario Betts MD Mental Status Examination Appearance man, several bruises in his face, age appearing, [facility], [facility] , cooperative Speech: Unremarkable Memory: Unremarkable Thought Process: Logical Thought Content: Unremarkable Suicidal Ideation: No Previous Suicide Attempts: Yes Homicidal Ideation: No Previous Homicide Attempts: No Judgment: Poor Affect: Sad Mood: Sad Motor Activity: Normal gait Assessment & Plan Problem List: (1) Major depressive disorder, single episode ICD Codes: F32.9 - Major depressive disorder, single episode, unspecified Assessment & Plan: Patient presents with ongoing symptomatology of depression for the last month, that have exacerbated in the last 2 weeks in the context of unemployment, financial problems, but also problems with his . Patient reports that for the last 2 weeks he has been feeling increasingly guilty, with decreased self-esteem, feeling empty, that his life is going down the hill, hopelessness, helplessness, unable to find purpose in his life, and anhedonic with persistent suicidal thoughts to the point that he had tried to commit suicide by overdosing with Benadryl. Patient seems to be regretful about his overdose, but very fragile and vulnerable. He needs psychiatric hospitalization for stabilization and safety. Will no prescribe psychotropics at this moment until his medically clear. Extensive support, motivation psychoeducation provided. Collateral information is still pending. Transfer to med psych. Assessment & Plan Estimated LOS: Alli Powers MD Apr 05, 2017 11:06
== END 2017-04-05 11:15 | DRG 917 ==
LOC: NEPE 15:29 → NEDA 18:18 → HIMW 21:10
PROVIDERS: ADMIT Hospitalist; ATTEND Hospitalist
PROC: 0BH17EZ Insertion of Endotracheal Airway into Trachea, Via Natural or Artificial Opening (ICD-10-PCS; principal; 2017-04-03)
PROC: 5A1935Z Respiratory Ventilation, Less than 24 Consecutive Hours (ICD-10-PCS; 2017-04-03)
DX: T45.0X2A Poisoning by antiallergic and antiemetic drugs, intentional self-harm, initial encounter (principal); G92 Toxic encephalopathy; J96.90 Respiratory failure, unspecified, unspecified whether with hypoxia or hypercapnia; S00.03XA Contusion of scalp, initial encounter; W18.30XA Fall on same level, unspecified, initial encounter; R33.9 Retention of urine, unspecified
CPT/HCPCS: 31500; 36600; 70450; 71010; 80048; 80053; 80307; 82550; 82805; 83735; 84100; 85025; 85027; 85610; 85730; 87641; 93005; 94002; 94003; 96361; 96365; 96374; C9113; J1650; J2060; J2250; J3480; J7030

== ENCOUNTER 2017-04-05 11:24 | Inpatient (IN) | payer OTHER ==
[~2017-04-05] VITALS: Ht 175.3 cm; Wt 93.3 kg
[2017-04-05 18:00] VITALS: BP 154/91; PULSE 123; RESP 18; TEMP 99.9; O2SAT 94
[2017-04-05] MEDS ORDERED: ONDANSETRON HCL 4 MG/2 ML VIAL IVP PRN (22:30)
[2017-04-05] MEDS ORDERED: ACETAMINOPHEN 325 MG TAB PO PRN (22:30)
[2017-04-06] MEDS: POTASSIUM CHLORIDE INJ 10 MEQ in SODIUM CHLOR 0.9% 1000 ML INJ 1,000 ML IV SCH ×2 (00:37→11:54)
[2017-04-06 00:39] VITALS: BP 132/85; PULSE 113; RESP 18; TEMP 99.4; O2SAT 94
[2017-04-06] MEDS: ENOXAPARIN SODIUM 40 MG/0.4 ML SYRINGE SQ SCH ×2 (00:48→20:44)
[2017-04-06 05:35] LABS: AUTOMATED NEUTROPHIL # 6.3 TH/MM3 (1.8-7.7); BASOPHIL % 0.3 % (0.0-2.0); EOSINOPHIL # 0.2 TH/MM3 (0-0.4); EOSINOPHIL % 1.9 % (0.0-4.0); HEMATOCRIT 38.3 % (39.0-51.0); HEMO FLAGS DIFF FINAL; LYMPH % 28.8 % (9.0-44.0); LYMPHOCYTE # 3.1 TH/MM3 (1.0-4.8); MEAN CELL VOLUME 83.8 FL (80.0-100.0); MEAN CORPUSCULAR HEMOGLOBIN 28.1 PG (27.0-34.0); MEAN CORPUSCULAR HGB CONC 33.5 % (32.0-36.0); MONO % 11.3 % (0.0-8.0); NEUT % 57.7 % (16.0-70.0); PLATELET COUNT 400 TH/MM3 (150-450); RED BLOOD COUNT 4.57 MIL/MM3 (4.50-5.90); RED CELL DISTRIBUTION WIDTH 14.4 % (11.6-17.2); WHITE BLOOD COUNT 10.9 TH/MM3 (4.0-11.0)
[2017-04-06 05:55] LABS: BICARBONATE 24.9 MEQ/L (21.0-32.0); POTASSIUM 3.3 MEQ/L (3.5-5.1)
[2017-04-06 06:12] VITALS: BP 127/78; PULSE 94; RESP 18; TEMP 98.8; O2SAT 92
[2017-04-06] MEDS: PANTOPRAZOLE SOD 40 MG DELAYED RELEASE TAB PO SCH (08:05)
--- NOTE | 2017-04-06 14:11 | PD.CONS ---
HPI Service [facility] Consult Requested By Psychiatry team Reason for Consult Assist with medical management, follow-up from regular [facility] floor. Primary Care Physician Unknown Diagnoses: History of Present Illness Written by Estrellita Uriarte, acting as scribe for Dr. García on 04/06/17 at 13: 53. Patient is a 26-year-old male with no primary medical history who came into the hospital after intentionally ingesting 83 Benadryl tablets. As per review of records, patient witnessed act on snap chat. In the ED patient was tachycardic, confused, with tremors, and hyperflexion. He was intubated and admitted to critical care. Patient clinically improved, extubated, toxic encephalopathy also has improved. He is now admitted to inpatient medical psychiatry unit for further evaluation. Consulted for assistance in medical management. Patient seen and examined today. States that he remembered what happened to him , he feels that he had so much things going on with his life. When he went home he saw the Benadryl bottle and just all the pills and it. He does remember about his fall or how he injured his right side of his head and body. States he has no other medical condition nor was he diagnosed with any depression in the past. Patient also states he had no prior surgeries. Reports occasional use of cannabis. He complains of some facial pain, right sided for head pain, also with right lateral chest pain when taking deep breaths. Otherwise, denies SOB/ dyspnea. Patient c/o pleuritic chest pain int the right upper hemithorax, non radiating, worst with deep inspiration. Denies palpitations, headaches, dizziness. Denies fevers, chills, n/v/d. Denies hematuria, dysuria. Review of Systems Except as stated in HPI: all other systems reviewed are Neg Past Family Social History Allergies: Coded Allergies: Sulfa (Sulfonamide Antibiotics) (Unverified Allergy, Severe, CHILDHOOD, CAN'T REMEMBER, 04/03/17) Past Medical History None Past Surgical History None Reported Medications None Active Ordered Medications Current Medications Medications (Trade) Dose Ordered Sig/Aram Route Start Time Stop Time Status Last Admin (Tylenol) 650 mg Q4H PRN PO 04/05/17 22:30 04/05/17 23:19 (Zofran Inj) 4 mg Q6H PRN IVP 04/05/17 22:30 (Lovenox Inj) 40 mg Q24H SQ 04/05/17 22:30 04/06/17 00:48 Potassium Chloride 10 meq/ Sodium Chloride 1,005 ml @ 75 mls/hr [id number] IV 04/05/17 22:30 04/06/17 11:54 (Protonix) 40 mg DAILY PO 04/06/17 09:00 04/13/17 08:59 04/06/17 08:05 Family History States that dad has heart problems, smoker, also had CABG 4 Mother is healthy Social History Denies any alcohol use Denies any tobacco use Occasional use of cannabis Physical Exam Vital Signs Vital Signs Date Time Temp Pulse Resp B/P (MAP) Pulse Ox O2 Delivery O2 Flow Rate FiO2 04/06/17 06:12 98.8 94 18 127/78 (94) 92 04/06/17 00:39 99.4 113 18 132/85 (101) 94 04/05/17 18:00 99.9 123 18 154/91 (112) 94 Physical Exam GENERAL: This is a well-nourished, well-developed patient, in no apparent distress. SKIN: Warm and dry. HEAD: Normocephalic. Right scalp, forehead, facial are scabs/ scrapes. EYES: Pupils equal round and reactive. Extraocular motions intact. No scleral icterus. No injection or drainage. ENT: Nose without bleeding. Throat without erythema. Uvula midline. Airway patent. NECK: Trachea midline. Supple. CARDIOVASCULAR: Regular rate and rhythm without murmurs, gallops, or rubs. RESPIRATORY: Clear to auscultation. Breath sounds equal bilaterally. No wheezes , rales, or rhonchi. Right lateral chest area tenderness to palpation. GASTROINTESTINAL: Abdomen soft, non-tender, nondistended. No hepato-splenomegaly , or palpable masses. No guarding. MUSCULOSKELETAL: Extremities without clubbing, cyanosis, or edema. NEUROLOGICAL: Awake and alert. Cranial nerves II through XII intact. Motor and sensory grossly within normal limits. Five out of 5 muscle strength in all muscle groups. Normal speech. Laboratory Laboratory Tests Test 04/06/17 04:20 White Blood Count 10.9 Red Blood Count 4.57 Hemoglobin 12.8 Hematocrit 38.3 Mean Corpuscular Volume 83.8 Mean Corpuscular Hemoglobin 28.1 Mean Corpuscular Hemoglobin Concent 33.5 Red Cell Distribution Width 14.4 Platelet Count 400 Mean Platelet Volume 7.5 Neutrophils (%) (Auto) 57.7 Lymphocytes (%) (Auto) 28.8 Monocytes (%) (Auto) 11.3 Eosinophils (%) (Auto) 1.9 Basophils (%) (Auto) 0.3 Neutrophils # (Auto) 6.3 Lymphocytes # (Auto) 3.1 Monocytes # (Auto) 1.2 Eosinophils # (Auto) 0.2 Basophils # (Auto) 0.0 CBC Comment DIFF FINAL Differential Comment Blood Urea Nitrogen 7 Creatinine 0.95 Random Glucose 86 Calcium Level 8.2 Sodium Level 140 Potassium Level 3.3 Chloride Level 106 Carbon Dioxide Level 24.9 Anion Gap 9 Estimat Glomerular Filtration Rate 95 Result Diagram: 04/06/1741904/06/17419 Assessment and Plan Problem List: (1) Major depressive disorder, single episode ICD Code: F32.9 - Major depressive disorder, single episode, unspecified (2) Intentional diphenhydramine overdose ICD Code: T45.0X2A - Poisoning by antiallergic and antiemetic drugs, intentional self-harm, initial encounter Status: Acute Assessment and Plan Patient is a 26-year-old male with no primary medical history who came into the hospital after intentionally ingesting 83 Benadryl tablets. As per review of records, patient witnessed act on snap chat. In the ED patient was tachycardic, confused, with tremors, and hyperflexion. He was intubated and admitted to critical care. Patient clinically improved, extubated, toxic encephalopathy also has improved. He is now admitted to inpatient medical psychiatry unit for further evaluation. Consulted for assistance in medical management. Pleuritic chest pain on right hemothorax Scabs Right facial area, right forehead - CT of the head showed scalp hematoma - Chest x-ray 04/03/17 possible mild distal pulmonary edema and left lung base infiltrate is present with questionable left pleural effusion - Improved leukocytosis. No symptomatology. - Repeat chest xray Toxic encephalopathy - Improved - Answers questions and follows commands Intentional drug OD Suicidal Ideation - Managed by Psychiatry Team Hypokalemia - Continue with IVF NS with KCL 75ML/hr - K+ replacement PO, - Repeat BMP tomorrow DVT Prop Lovenox GI Prop pantoprazole Code Status Full code Discussed Condition With Patient, nursing This note was transcribed by regi Uriarte. I, Dr. Vignesh Drake personally performed the history, physical exam, and medical decision making; and confirmed the accuracy of the information in the transcribed note. Authenticated by Dr. Vignesh Drake on 04/06/17 at 14:11. Estrellita Lopez Apr 06, 2017 14:10 Vignesh Gross MD Apr 06, 2017 14:14
--- NOTE | 2017-04-06 14:46 | HHI.HP ---
Provisional Diagnosis Admission Date Apr 05, 2017 at 11:24 [place] I. Major depressive disorder, recurrent, severe, without psychosis Certification of Person's Competence To Provide Express and Informed Consent I have personally examined Miky Sams , a person being served at [facility] on, Apr 06, 2017 14:37. Express and informed consent means consent voluntarily given in writing, by a competent person, after sufficient explanation and disclosure of the subject matter involved to enable the person to make a knowing and willful decision without any element of force, fraud, deceit, duress, or other form of constraint or coercion. This person is 18 years of age or older, is not now known to be incompetent to consent to treatment with a guardian advocate, and does not have a health care surrogate or proxy currently making medical treatment decisions. I have found this person to be one of the following: [x] Competent to provide express and informed consent, as defined above, for voluntary admission to this facility and is competent to provide express and informed consent for treatment. He/she has the consistent capacity to make well reasoned, willful, and knowing decisions concerning his or her medical or mental health treatment. The person fully and consistently understands the purpose of the admission for examination/placement and is fully capable of personally exercising all rights assured [place] Incompetent to provide express and informed consent to voluntary admission, and this is incompetent to provide express and informed consent to treatment. The person must be transferred to involuntary status and a petition for a guardian advocate filed with the Circuit Court. [] Refusing to provide express and informed consent to voluntary admission but is competent to provide express and informed consent for treatment. The person must be discharged or transferred to involuntary status. Form shall be completed within 24 hours of a person's arrival at the receiving facility and filed in the clinical record of each person: 1. Admitted on a voluntary basis 2. Permitted to provide express and informed consent to his/her own treatment 3. Allowed to transfer from involuntary to voluntary status 4. Prior to permitting a person to consent to his or her own treatment after having been previously found incompetent to consent to treatment. History of Present Illness Capacity: Has Capacity HPI 04/05/2017 The patient is a 26-year-old man, domiciled in [place] with his , he has 4 kids, he is now unemployed, without any previous psychiatric history, no previous suicidal attempts, no previous psychiatric hospitalizations , cannabis use disorder, no significant medical history, who was brought to the ER because he intentionally ingested about 83 benedryl tabs about an hour prior to arrival with the intention is to kill himself. His witnessed the act on snap chat. He arrives with tachycardia, confusion, tremors, and hyper-reflexia. There is an abrasion on the right side of his forehead made when the police threw him on the floor due to aggressive and combativeness. On the psychiatric evaluation today in the ICU, patient reports that in the last months, especially in the last 2 weeks he has been increasingly depressed in the context of family problems, unemployment, "and other multiple things". Patient says that "there is a lot of things going on my life, I feel very overwhelmed, and I feel like everything is going down the hill and nobody can save me". He says for the last 2 weeks he has been feeling completely hopeless, helpless, with very decreased self-esteem, with permanent sense of guiltiness, poor sleep , weight loss, no appetite and continues and intrusive suicidal thoughts that led to his current suicidal attempt. Patient stated that they have the suicidal thinking he had an argument with his . Patient says that he has been cheating on his with another woman "and I also had a huge problem with that woman that they". "I thought that I was losing everything and I prefer to kill myself". At this moment the patient reports sadness, remorse and he feels "regretful". He is to have suicidal thoughts, but no plan. Patient is willing to accept help and be admitted in psychiatry for treatment. He denies visual and auditory hallucinations. He denies homicidal ideation. Patient is oriented 3, no attention deficit, no fluctuation of consciousness, no delirium, no gross cognitive impairment present. Patient reports daily use of marijuana, occasional use of alcohol. 04/06/2017 patient was seen today for psychiatric reevaluation along with nurse in charge José Miguel and social worker clinical Queta. Patient reports that he feels much better today, but still down, with increase guiltiness and "embarrassed". Patient says that in the other hand he is happy that he is alive and he has another opportunity for his mistakes. He does admit that he has been struggling with depression in the last weeks, with increased sensitivity to frustration and criticism, confusion, anxiety, intrusive thoughts, insomnia, decreased appetite and level of energy, and persistent suicidal thoughts. Patient says that he has been reflecting about the importance of being positive and "being there for his family". Patient clarifies that before yesterday when he overdosed he did with the intention to "but that was very confused about moment". Patient is willing to take medications for his depression, also willing to sign voluntary to stay in the hospital as much as he needs. At this moment he denies suicidal and homicidal ideation, he denies visual and auditory hallucinations. Review of Systems Constitutional: DENIES: Diaphoretic episodes, Fatigue, Fever, Weight gain, Weight loss, Chills, Dizziness, Change in appetite, Night Sweats Endocrine: DENIES: Heat/cold intolerance, Polydipsia, Polyuria, Polyphagia Eyes: DENIES: Blurred vision, Diplopia, Eye inflammation, Eye pain, Vision loss , Photosensitivity, Double Vision Ears, nose, mouth, throat: DENIES: Tinnitus, Hearing loss, Vertigo, Nasal discharge, Oral lesions, Throat pain, Hoarseness, Ear Pain, Running Nose, Epistaxis, Sinus Pain, Toothache, Odynophagia Respiratory: DENIES: Apneas, Cough, Snoring, Wheezing, Hemoptysis, Sputum production, Shortness of breath Cardiovascular: DENIES: Chest pain, Palpitations, Syncope, Dyspnea on Exertion , PND, Lower Extremity Edema, Orthopnea, Claudication Gastrointestinal: DENIES: Abdominal pain, Black stools, Bloody stools, Constipation, Diarrhea, Nausea, Vomiting, Difficulty Swallowing, Anorexia Musculoskeletal: DENIES: Joint pain, Muscle aches, Stiffness, Joint Swelling, Back pain, Neck pain Integumentary: DENIES: Abnormal pigmentation, Nail changes, Pruritus, Rash Hematologic/lymphatic: DENIES: Bruising, Lymphadenopathy Immunologic/allergic: DENIES: Eczema, Urticaria Neurologic: DENIES: Abnormal gait, Headache, Localized weakness, Paresthesias, Seizures, Speech Problems, Tremor, Poor Balance Psychiatric: DENIES: Anxiety, Confusion, Mood changes, Depression, Hallucinations, Agitation, Suicidal Ideation, Homicidal Ideation, Delusions Past Psych History Violence risk - self (6 mos) Increased Substance Abuse History Drugs/Alcohol past 12 months Reports use of cannabis every day, Past Family Social History Coded Allergies: Sulfa (Sulfonamide Antibiotics) (Unverified Allergy, Severe, CHILDHOOD, CAN'T REMEMBER, 04/03/17) No Active Prescriptions or Reported Meds Current Medications Medications (Trade) Dose Ordered Sig/Aram Route Start Time Stop Time Status Last Admin (Tylenol) 650 mg Q4H PRN PO 04/05/17 22:30 04/05/17 23:19 (Zofran Inj) 4 mg Q6H PRN IVP 04/05/17 22:30 (Lovenox Inj) 40 mg Q24H SQ 04/05/17 22:30 04/06/17 00:48 Potassium Chloride 10 meq/ Sodium Chloride 1,005 ml @ 75 mls/hr [id number] IV 04/05/17 22:30 04/06/17 11:54 (Protonix) 40 mg DAILY PO 04/06/17 09:00 04/13/17 08:59 04/06/17 08:05 (Desyrel) 100 mg HS PO 04/06/17 21:00 UNV (Wellbutrin) 75 mg Q12HR PO 04/06/17 14:45 UNV Social History Patient was born and raised in [place], he lives in [place] his and 4 kids, employed at the moment, highest level of education is high school Patient's Strengths (min. 2) Family support Physical Exam Vital Signs Vital Signs Date Time Temp Pulse Resp B/P (MAP) Pulse Ox O2 Delivery O2 Flow Rate FiO2 04/06/17 06:12 98.8 94 18 127/78 (94) 92 I/O 04/06/17 04/06/17 04/07/17 08:00 16:00 00:00 Intake Total 846 ml 720 ml Balance 846 ml 720 ml Mental Status Examination Appearance overweight man, [facility], calm and cooperative Speech: Unremarkable, Pressured Memory: Unremarkable Thought Process: Logical, Goal Directed, Linear Thought Content: Unremarkable Hallucination Type: None Attention and Concentration: Good Suicidal Ideation: No Previous Suicide Attempts: Yes Homicidal Ideation: No Previous Homicide Attempts: No Judgment: Poor Affect: Sad Mood: Sad Motor Activity: Normal gait Assessment & Plan Problem List: (1) Major depressive disorder, single episode ICD Codes: F32.9 - Major depressive disorder, single episode, unspecified Assessment & Plan: On psychiatric evaluation today and admits that unit patient presents with ongoing symptomatology of depression for the last month, that have exacerbated in the last 2 weeks in the context of unemployment, financial problems, but also problems with his . Patient reports that for the last 2 weeks he has been feeling increasingly guilty, with decreased self- esteem, feeling empty, that his life is going down the hill, hopelessness, helplessness, unable to find purpose in his life, and anhedonic with persistent suicidal thoughts to the point that he had tried to commit suicide by overdosing with Benadryl. Patient seems to be regretful about his overdose, but very fragile and vulnerable. He needs psychiatric hospitalization for stabilization and safety. We'll start Wellbutrin 75 mg twice a day for depression, trazodone 100 mg at bedtime to help with sleep and depression. Extensive support, motivation psychoeducation provided. general ii farmworker intervention for psychosocial assessment, collateral information, individual and group psychotherapy and to coordinate a safe discharge plan. Patient will sign voluntary admission. Assessment & Plan Estimated LOS: Alli Powers MD Apr 06, 2017 14:46
[2017-04-06 18:00] VITALS: BP 139/90; PULSE 103; RESP 18; TEMP 98.7; O2SAT 95
[2017-04-06] MEDS ORDERED: buPROPion HCL 75 MG TAB PO SCH (21:00)
[2017-04-06] MEDS: traZODone HCL 100 MG TAB PO SCH (21:00)
[2017-04-06] MEDS ORDERED: traZODone HCL 100 MG TAB PO SCH (21:00)
[2017-04-06] MEDS: buPROPion HCL 75 MG TAB PO SCH (21:00)
[2017-04-07] MEDS: POTASSIUM CHLORIDE INJ 10 MEQ in SODIUM CHLOR 0.9% 1000 ML INJ 1,000 ML IV SCH ×2 (02:10→16:45)
[2017-04-07 06:03] VITALS: BP 135/75; PULSE 109; RESP 18; TEMP 99; O2SAT 95
--- NOTE | 2017-04-07 08:50 | HHI.PR ---
Subjective Remarks The patient said that he has not been sleeping that well, but he normally doesn' t sleep well. He does not have much of an appetite. He has been ambulating to the bathroom without difficulty. He does endorse right-sided chest wall pain. He says he believes he got it when he was tackled by the police. It's worse with movement and when he coughs. He says he has been coughing more frequently recently. Denies constipation or dysuria. Objective Vitals Vital Signs Date Time Temp Pulse Resp B/P (MAP) Pulse Ox O2 Delivery O2 Flow Rate FiO2 04/07/17 06:03 99.0 109 18 135/75 (95) 95 04/06/17 18:00 98.7 103 18 139/90 (106) 95 I/O 04/06/17 04/06/17 04/06/17 04/07/17 04/07/17 04/07/17 06:59 14:59 22:59 06:59 14:59 22:59 Intake Total 1086 ml 720 ml 720 ml 24 ml Balance 1086 ml 720 ml 720 ml 24 ml Intake Oral 240 ml 240 ml 720 ml 24 ml Oral Supplement 480 ml IV Total 846 ml # Voids 2 4 2 Result Diagram: 04/06/1741904/06/17419 Objective Remarks GENERAL: This is a well-nourished, well-developed patient, in no apparent distress. SKIN: Warm and dry. Abrasions on right side of face. HEAD: Normocephalic. Right scalp, forehead, facial area scabs/ scrapes. EYES: Pupils equal round and reactive. Extraocular motions intact. No scleral icterus. No injection or drainage. ENT: Nose without bleeding. Throat without erythema. Uvula midline. Airway patent. NECK: Trachea midline. Supple. CARDIOVASCULAR: Tachycardic without murmurs, gallops, or rubs. RESPIRATORY: Bilateral crackles at the bases. Right lateral chest area tenderness to palpation. GASTROINTESTINAL: Abdomen soft, non-tender, nondistended. No hepato-splenomegaly , or palpable masses. No guarding. MUSCULOSKELETAL: Extremities without clubbing, cyanosis, or edema. NEUROLOGICAL: Awake and alert. Cranial nerves II through XII intact. Motor and sensory grossly within normal limits. Five out of 5 muscle strength in all muscle groups. Normal speech. PSYCH: Slightly flattened affect. Medications and IVs Current Medications Medications (Trade) Dose Ordered Sig/Aram Route Start Time Stop Time Status Last Admin (Tylenol) 650 mg Q4H PRN PO 04/05/17 22:30 04/05/17 23:19 (Zofran Inj) 4 mg Q6H PRN IVP 04/05/17 22:30 (Lovenox Inj) 40 mg Q24H SQ 04/05/17 22:30 04/06/17 20:44 Potassium Chloride 10 meq/ Sodium Chloride 1,005 ml @ 75 mls/hr [id number] IV 04/05/17 22:30 04/07/17 02:10 (Protonix) 40 mg DAILY PO 04/06/17 09:00 04/13/17 08:59 04/06/17 08:05 (Desyrel) 100 mg HS PO 04/06/17 21:00 04/06/17 21:00 (Wellbutrin) 75 mg Q12HR PO 04/06/17 21:00 04/06/17 21:00 A/P Problem List: (1) Major depressive disorder, single episode ICD Code: F32.9 - Major depressive disorder, single episode, unspecified (2) Intentional diphenhydramine overdose ICD Code: T45.0X2A - Poisoning by antiallergic and antiemetic drugs, intentional self-harm, initial encounter Status: Acute Assessment and Plan Patient is a 26-year-old male with no primary medical history who came into the hospital after intentionally ingesting 83 Benadryl tablets. As per review of records, patient's witnessed the act on Snapchat. In the ED patient was tachycardic, confused, with tremors, and hyperflexion. He was intubated and admitted to critical care. Patient clinically improved, extubated, toxic encephalopathy also improved. He is now admitted to inpatient medical psychiatry unit for further evaluation. Consulted for assistance in medical management. Pleuritic chest pain on right hemithorax Scabs Right facial area, right forehead Cough - CT of the head showed scalp hematoma - Chest x-ray 04/03/17 possible mild distal pulmonary edema and left lung base infiltrate is present with questionable left pleural effusion - Repeat CBC. - Repeat chest x ray 04/07. - Duonebs x 1 and as needed. Toxic encephalopathy S/t overdose. - Improved. Answers questions and follows commands. - resolved. Intentional drug OD Suicidal Ideation - Managed by Psychiatry Team Hypokalemia - Continue with IVF NS with KCL 75ML/hr - K+ replacement PO - Repeat BMP - check mag and phos levels. DVT Prop Marquise Roca DO Apr 07, 2017 08:50
[2017-04-07] MEDS: PANTOPRAZOLE SOD 40 MG DELAYED RELEASE TAB PO SCH (09:00)
[2017-04-07] MEDS ORDERED: RESP: ALBUTEROL 2.5 MG/IPRATROPIUM 0.5 MG NEB (PRN) NEB (09:00)
[2017-04-07] MEDS: buPROPion HCL 75 MG TAB PO SCH (09:00)
[2017-04-07] MEDS ORDERED: RESP: ALBUTEROL 2.5 MG/IPRATROPIUM 0.5 MG NEB (SCH) NEB ONE (09:00)
--- NOTE | 2017-04-07 10:57 | RADRPT ---
EXAM DATE/TIME: 04/07/2017 10:14 [facility] COMPARISON: CHEST SINGLE AP, April 03, 2017, 19:31. INDICATIONS : Pneumonia. MEDICAL HISTORY : None. SURGICAL HISTORY : None. ENCOUNTER: Initial ACUITY: 3 days PAIN SCORE: 0/10 LOCATION: Bilateral chest FINDINGS: A single portable frontal view the chest. Infiltrates within each lung base. Heart is mildly enlarged . Endotracheal tube and nasogastric tube have been removed. No effusions. CONCLUSION: Bibasilar infiltrates. Mild cardiomegaly. Arie Laura Jr., MD on April 07, 2017 at 10:54 Board Certified Radiologist. This report was verified electronically.
[2017-04-07 12:21] LABS: AUTOMATED NEUTROPHIL # 7.6 TH/MM3 (1.8-7.7); BASOPHIL % 0.3 % (0.0-2.0); EOSINOPHIL # 0.2 TH/MM3 (0-0.4); EOSINOPHIL % 1.5 % (0.0-4.0); HEMATOCRIT 41.4 % (39.0-51.0); HEMO FLAGS DIFF FINAL; LYMPH % 15.2 % (9.0-44.0); LYMPHOCYTE # 1.6 TH/MM3 (1.0-4.8); MEAN CELL VOLUME 84.5 FL (80.0-100.0); MEAN CORPUSCULAR HEMOGLOBIN 27.4 PG (27.0-34.0); MEAN CORPUSCULAR HGB CONC 32.5 % (32.0-36.0); MONO % 12.3 % (0.0-8.0); NEUT % 70.7 % (16.0-70.0); PLATELET COUNT 455 TH/MM3 (150-450); RED CELL DISTRIBUTION WIDTH 14.3 % (11.6-17.2); WHITE BLOOD COUNT 10.8 TH/MM3 (4.0-11.0)
--- NOTE | 2017-04-07 12:31 | HHI.PYPN ---
Subjective Remarks Patient seen for follow-up, chart reviewed. After discussion with the staff patient has not had any behavioral issues on the unit, compliant with medications after encouragement. Patient was found sitting in hospital bed, cooperative interview. Patient stated that he's been feeling "tired" as he didn 't have much sleep last evening but reports having taken a nap during the day. She states that his mood is "great" and had been visited by his family and his yesterday and states that they feel he is doing better. Patient this time denies any suicidal ideations. Patient states that he had been reflecting on recent events and had to feeling embarrassed and guilty for what he had done. He states that his top stressors. She related to his recent suicide attempt was the ending of of extramarital relationship which also caused him his job and is now unemployed as well as relationship discord with his . Patient states that he is tolerating medications well denies any SI, HI, AVH or delusions at this time. Review of Systems Except as stated in HPI: all other systems reviewed are Neg Objective Alert: Yes [place]: Person, Place, Date Mood: Depressed Affect: Other (slightly guarded) Memory Intact: Comment (contact) Hallucinations: Other (denies) Delusions: No Delusion Type: Other (denies) Suicidal: Ideation (denies) Homicidal: Ideation (denies) Insight/Judgment Noted insight, fair impulse control, poor judgment Labs Labs reviewed. Test 04/07/17 11:41 White Blood Count 10.8 TH/MM3 Red Blood Count 4.90 MIL/MM3 Hemoglobin 13.5 GM/DL Hematocrit 41.4 % Mean Corpuscular Volume 84.5 FL Mean Corpuscular Hemoglobin 27.4 PG Mean Corpuscular Hemoglobin Concent 32.5 % Red Cell Distribution Width 14.3 % Platelet Count 455 TH/MM3 Mean Platelet Volume 7.3 FL Neutrophils (%) (Auto) 70.7 % Lymphocytes (%) (Auto) 15.2 % Monocytes (%) (Auto) 12.3 % Eosinophils (%) (Auto) 1.5 % Basophils (%) (Auto) 0.3 % Neutrophils # (Auto) 7.6 TH/MM3 Lymphocytes # (Auto) 1.6 TH/MM3 Monocytes # (Auto) 1.3 TH/MM3 Eosinophils # (Auto) 0.2 TH/MM3 Basophils # (Auto) 0.0 TH/MM3 CBC Comment DIFF FINAL Differential Comment Vitals/IOs Vitals reviewed. Vital Signs Date Time Temp Pulse Resp B/P (MAP) Pulse Ox O2 Delivery O2 Flow Rate FiO2 04/07/17 06:03 99.0 109 18 135/75 (95) 95 Intake and Output 04/07/17 04/07/17 04/07/17 07:59 15:59 23:59 Intake Total 24 ml 720 ml Balance 24 ml 720 ml Assessment & Plan Problem List: (1) Major depressive disorder, single episode ICD Codes: F32.9 - Major depressive disorder, single episode, unspecified Assessment & Plan Estimated LOS: 5-7 days. Patient at this time continues to be depressed, although denies any suicidality at this time, patient continues to require further observation and management for stabilization. Continue current treatment. Monitor for medication response adverse drug reactions. Supportive psychotherapy provided. Discharge planning in progress. Justification for Cont. Inpt. Patient at risk for further decompensation if at a lower level of care Emerson Mcneil MD Apr 07, 2017 12:31
[2017-04-07 12:43] LABS: BICARBONATE 23.9 MEQ/L (21.0-32.0); MAGNESIUM 2.2 MG/DL (1.5-2.5); POTASSIUM 3.7 MEQ/L (3.5-5.1)
[2017-04-07 18:35] VITALS: BP 149/88; PULSE 120; RESP 19; TEMP 98.4; O2SAT 96
[2017-04-07] MEDS: traZODone HCL 100 MG TAB PO SCH (21:00)
[2017-04-07] MEDS: ENOXAPARIN SODIUM 40 MG/0.4 ML SYRINGE SQ SCH (22:00)
[2017-04-08 05:50] VITALS: BP 133/71; PULSE 96; RESP 18; TEMP 97; O2SAT 98
[2017-04-08] MEDS: POTASSIUM CHLORIDE INJ 10 MEQ in SODIUM CHLOR 0.9% 1000 ML INJ 1,000 ML IV SCH (06:09)
[2017-04-08] MEDS: buPROPion HCL 100 MG TAB PO SCH ×2 (09:00→20:53)
[2017-04-08] MEDS: PANTOPRAZOLE SOD 40 MG DELAYED RELEASE TAB PO SCH (09:00)
--- NOTE | 2017-04-08 09:29 | HHI.PR ---
Subjective Remarks The patient said that his cough is better. He was not complaining of shortness of breath. He was eager to go home soon. Discussed with nursing. Objective Vitals Vital Signs Date Time Temp Pulse Resp B/P (MAP) Pulse Ox O2 Delivery O2 Flow Rate FiO2 04/08/17 05:50 97.0 96 18 133/71 (91) 98 04/07/17 18:35 98.4 120 19 149/88 (108) 96 I/O 04/07/17 04/07/17 04/07/17 04/08/17 04/08/17 04/08/17 07:00 15:00 23:00 07:00 15:00 23:00 Intake Total 24 ml 1200 ml 600 ml Balance 24 ml 1200 ml 600 ml Intake Oral 24 ml 1200 ml 600 ml # Voids 2 2 Result Diagram: 04/07/17 1141 04/07/17 1141 Imaging Last Impressions Chest X-Ray 04/07/17 0000 Signed Impressions: Service Date/Time: Friday, April 07, 2017 10:14 - CONCLUSION: Bibasilar infiltrates. Mild cardiomegaly. Arie Laura Jr., MD Objective Remarks GENERAL: This is a well-nourished, well-developed patient, in no apparent distress. SKIN: Warm and dry. Abrasions on right side of face. HEAD: Normocephalic. Right scalp, forehead, facial area scabs/ scrapes. EYES: Pupils equal round and reactive. Extraocular motions intact. No scleral icterus. No injection or drainage. ENT: Nose without bleeding. Throat without erythema. Uvula midline. Airway patent. NECK: Trachea midline. Supple. CARDIOVASCULAR: Tachycardic without murmurs, gallops, or rubs. RESPIRATORY: Bilateral crackles at the bases. Right lateral chest area tenderness to palpation. GASTROINTESTINAL: Abdomen soft, non-tender, nondistended. No hepato-splenomegaly , or palpable masses. No guarding. MUSCULOSKELETAL: Extremities without clubbing, cyanosis, or edema. NEUROLOGICAL: Awake and alert. Cranial nerves II through XII intact. Motor and sensory grossly within normal limits. Five out of 5 muscle strength in all muscle groups. Normal speech. PSYCH: Slightly flattened affect. Medications and IVs Current Medications Medications (Trade) Dose Ordered Sig/Aram Route Start Time Stop Time Status Last Admin (Tylenol) 650 mg Q4H PRN PO 04/05/17 22:30 04/05/17 23:19 (Zofran Inj) 4 mg Q6H PRN IVP 04/05/17 22:30 (Lovenox Inj) 40 mg Q24H SQ 04/05/17 22:30 04/07/17 22:00 Potassium Chloride 10 meq/ Sodium Chloride 1,005 ml @ 75 mls/hr [id number] IV 04/05/17 22:30 04/08/17 06:09 (Protonix) 40 mg DAILY PO 04/06/17 09:00 04/13/17 08:59 04/07/17 09:00 (Desyrel) 100 mg HS PO 04/06/17 21:00 04/07/17 21:00 (Duoneb Neb) 1 ampule Q2HR NEB PRN NEB 04/07/17 09:00 (Wellbutrin) 100 mg Q12HR PO 04/08/17 09:00 Ceftriaxone Sodium 1000 mg/ Sodium Chloride 100 ml @ 200 mls/hr Q24H IV 04/08/17 11:00 Azithromycin 500 mg/Sodium Chloride 250 ml @ 250 mls/hr Q24H IV 04/08/17 10:00 A/P Problem List: (1) Major depressive disorder, single episode ICD Code: F32.9 - Major depressive disorder, single episode, unspecified (2) Intentional diphenhydramine overdose ICD Code: T45.0X2A - Poisoning by antiallergic and antiemetic drugs, intentional self-harm, initial encounter Status: Acute Assessment and Plan Patient is a 26-year-old male with no primary medical history who came into the hospital after intentionally ingesting 83 Benadryl tablets. As per review of records, patient's witnessed the act on Snapchat. In the ED patient was tachycardic, confused, with tremors, and hyperflexion. He was intubated and admitted to critical care. Patient clinically improved, extubated, toxic encephalopathy also improved. He is now admitted to inpatient medical psychiatry unit for further evaluation. Consulted for assistance in medical management. Scabs Right facial area, right forehead CT of the head showed scalp hematoma. - ointment as needed. CAP Chest x-ray 04/03/17 possible mild distal pulmonary edema and left lung base infiltrate is present with questionable left pleural effusion. Repeat CXR with bilateral basilar infiltrates. Afebrile and without leukocytosis. - started treatment for CAP with IV ceftriaxone and IV azithromycin. May complete a course of PO azithromycin and Ceftin upon discharge. - Duonebs and oxygen as needed. Toxic encephalopathy S/t overdose. - resolved. Intentional drug OD/ Suicidal Ideation - Managed by Psychiatry Team Hypokalemia S/p IVF NS with KCL 75ML/hr. - K+ replacement PO as needed. - Repeat BMP in AM. Hypophosphatemia Phos level 2.3 - replete with IV Na phos. DVT Prop Lovenox Discharge Planning Per primary Marquise Ambrosio DO Apr 08, 2017 09:29
[2017-04-08] MEDS ORDERED: SODIUM PHOSPHATE INJ 15 MMOL in SODIUM CHLORIDE 0.9% INJ 150 ML IV ONE (10:00)
[2017-04-08] MEDS: cefTRIAXone INJ 1,000 MG in SODIUM CHLORIDE 0.9% INJ 100 ML IV SCH (10:31)
[2017-04-08] MEDS: AZITHROMYCIN INJ 500 MG in SODIUM CHLOR 0.9% 250 ML INJ 250 ML IV SCH (11:06)
--- NOTE | 2017-04-08 16:35 | HHI.PYPN ---
Subjective Remarks Patient seen for follow-up, chart reviewed. As discussion with nursing staff patient had hypokalemia corrected by medical management, currently focused on discharge soon. Patient found sitting on chair, cooperative interview. He states that he had been feeling "good", states that he had been tolerating medications well with no adverse drug reactions. Patient states that his visited him yesterday which went well as well as his mother but did not stay for long. Patient reports that he plans to be discharged to his parents home which she'll reside for now as well as focus on getting better, finding work and going back to school. Patient denies any depressive symptoms denies SI, HI , AVH or delusions. Review of Systems Except as stated in HPI: all other systems reviewed are Neg Objective Alert: Yes [place]: Person, Place, Date Mood: Calm Affect: Appropriate Memory Intact: Comment (intact) Hallucinations: Other (denies) Delusions: No Delusion Type: Other (denies) Suicidal: Ideation (denies) Homicidal: Ideation (denies) Insight/Judgment Fair insight, impulse control and judgment Remarks Thought process linear, future oriented, thought content denies SI, HI, AVH or delusions. Vitals/IOs Vital Signs Date Time Temp Pulse Resp B/P (MAP) Pulse Ox O2 Delivery O2 Flow Rate FiO2 04/08/17 05:50 97.0 96 18 133/71 (91) 98 Intake and Output 04/08/17 04/08/17 04/09/17 08:00 16:00 00:00 Intake Total 480 ml 680 ml Balance 480 ml 680 ml Assessment & Plan Problem List: (1) Major depressive disorder, single episode ICD Codes: F32.9 - Major depressive disorder, single episode, unspecified Assessment & Plan Patient at this time appears to be responding well to current treatment, denies any depressive symptoms, denies any suicidality at this time. Patient with good social support and he currently is future oriented. Continue current treatment. Patient likely to discharge tomorrow back to parents home. Justification for Cont. Inpt. Patient at risk for further decompensation if at a lower level of care Emerson Mcneil MD Apr 08, 2017 16:35
[2017-04-08 18:00] VITALS: BP 129/73; PULSE 102; RESP 18; TEMP 98.5; O2SAT 95
[2017-04-08] MEDS: ENOXAPARIN SODIUM 40 MG/0.4 ML SYRINGE SQ SCH (20:53)
[2017-04-08] MEDS: traZODone HCL 100 MG TAB PO SCH (20:53)
[2017-04-09 06:04] VITALS: BP 124/72; PULSE 88; RESP 17; TEMP 98.7; O2SAT 94
[2017-04-09] MEDS ORDERED: BUPR100T4 PO (08:11)
[2017-04-09] MEDS ORDERED: TRAZ50TA12 PO (08:11)
[2017-04-09] MEDS ORDERED: PANT40TA3 PO (08:11)
[2017-04-09] MEDS: buPROPion HCL 100 MG TAB PO SCH (08:51)
[2017-04-09] MEDS: PANTOPRAZOLE SOD 40 MG DELAYED RELEASE TAB PO SCH (08:51)
[2017-04-09] MEDS: cefTRIAXone INJ 1,000 MG in SODIUM CHLORIDE 0.9% INJ 100 ML IV SCH (08:57)
[2017-04-09] MEDS: AZITHROMYCIN INJ 500 MG in SODIUM CHLOR 0.9% 250 ML INJ 250 ML IV SCH (08:57)
[2017-04-09] MEDS ORDERED: AZIT250T3 PO (09:34)
[2017-04-09] MEDS ORDERED: CEFU1TAB20 PO (09:34)
--- NOTE | 2017-04-09 09:41 | HHI.PR ---
Subjective Remarks The patient was feeling well this morning. He was anxious to go home. He said his cough was better. Discussed with nursing. Objective Vitals Vital Signs Date Time Temp Pulse Resp B/P (MAP) Pulse Ox O2 Delivery O2 Flow Rate FiO2 04/09/17 06:04 98.7 88 17 124/72 (89) 94 04/08/17 18:00 98.5 102 18 129/73 (91) 95 I/O 04/08/17 04/08/17 04/08/17 04/09/17 04/09/17 04/09/17 06:59 14:59 22:59 06:59 14:59 22:59 Intake Total 2120 ml 2640 ml 1140 ml Balance 2120 ml 2640 ml 1140 ml Intake Oral 1920 ml 2640 ml 1140 ml IV Total 200 ml 0 ml # Voids 2 4 6 Result Diagram: 04/07/17 1141 04/07/17 1141 Imaging Last Impressions Chest X-Ray 04/07/17 0000 Signed Impressions: Service Date/Time: Friday, April 07, 2017 10:14 - CONCLUSION: Bibasilar infiltrates. Mild cardiomegaly. Arie Laura Jr., MD Objective Remarks GENERAL: This is a well-nourished, well-developed patient, in no apparent distress. SKIN: Warm and dry. Abrasions on right side of face. HEAD: Normocephalic. Right scalp, forehead, facial area scabs/ scrapes. EYES: Pupils equal round and reactive. Extraocular motions intact. No scleral icterus. No injection or drainage. ENT: Nose without bleeding. Throat without erythema. Uvula midline. Airway patent. NECK: Trachea midline. Supple. CARDIOVASCULAR: Regular rate and rhythm without murmurs, gallops or rubs. RESPIRATORY: Mild bilateral crackles at the bases. Right lateral chest area tenderness to palpation. GASTROINTESTINAL: Abdomen soft, non-tender, nondistended. No hepato-splenomegaly , or palpable masses. No guarding. MUSCULOSKELETAL: Extremities without clubbing, cyanosis, or edema. NEUROLOGICAL: Awake and alert. Cranial nerves II through XII intact. Motor and sensory grossly within normal limits. Five out of 5 muscle strength in all muscle groups. Normal speech. PSYCH: Mood and affect appropriate. Medications and IVs Current Medications Medications (Trade) Dose Ordered Sig/Aram Route Start Time Stop Time Status Last Admin (Tylenol) 650 mg Q4H PRN PO 04/05/17 22:30 04/05/17 23:19 (Zofran Inj) 4 mg Q6H PRN IVP 04/05/17 22:30 (Lovenox Inj) 40 mg Q24H SQ 04/05/17 22:30 04/07/17 22:00 (Protonix) 40 mg DAILY PO 04/06/17 09:00 04/13/17 08:59 04/09/17 08:51 (Desyrel) 100 mg HS PO 04/06/17 21:00 04/08/17 20:53 (Duoneb Neb) 1 ampule Q2HR NEB PRN NEB 04/07/17 09:00 (Wellbutrin) 100 mg Q12HR PO 04/08/17 09:00 04/09/17 08:51 Ceftriaxone Sodium 1000 mg/ Sodium Chloride 100 ml @ 200 mls/hr Q24H IV 04/08/17 11:00 04/09/17 08:57 Azithromycin 500 mg/Sodium Chloride 250 ml @ 250 mls/hr Q24H IV 04/08/17 10:00 04/09/17 08:57 A/P Problem List: (1) Major depressive disorder, single episode ICD Code: F32.9 - Major depressive disorder, single episode, unspecified (2) Intentional diphenhydramine overdose ICD Code: T45.0X2A - Poisoning by antiallergic and antiemetic drugs, intentional self-harm, initial encounter Status: Acute Assessment and Plan Patient is a 26-year-old male with no primary medical history who came into the hospital after intentionally ingesting 83 Benadryl tablets. As per review of records, patient's witnessed the act on Snapchat. In the ED patient was tachycardic, confused, with tremors, and hyperflexion. He was intubated and admitted to critical care. Patient clinically improved, extubated, toxic encephalopathy also improved. He is now admitted to inpatient medical psychiatry unit for further evaluation. Consulted for assistance in medical management. Scabs Right facial area, right forehead CT of the head showed scalp hematoma. - Neosporin ointment as needed. CAP Chest x-ray 04/03/17 possible mild distal pulmonary edema and left lung base infiltrate is present with questionable left pleural effusion. Repeat CXR with bilateral basilar infiltrates. Afebrile and without leukocytosis. - started treatment for CAP with IV ceftriaxone and IV azithromycin. May complete a course of PO azithromycin and Ceftin upon discharge. Prescriptions written. - Duonebs and oxygen as needed. Toxic encephalopathy S/t overdose. - resolved. Intentional drug OD/ Suicidal Ideation - Managed by Psychiatry Team Hypokalemia S/p IVF NS with KCL 75ML/hr. - K+ replacement PO as needed. - Repeat BMP pending. Hypophosphatemia Phos level 2.3 - repleted with IV Na phos. DVT Prop Lovenox Discharge Planning The pt is medically cleared for discharge Marquise Ambrosio DO Apr 09, 2017 09:41
[2017-04-09 11:00] LABS: BICARBONATE 25.7 MEQ/L (21.0-32.0)
--- NOTE | 2017-04-09 18:02 | HHI.DS ---
Psychiatry Discharge Summary Inpatient Psychiatric care?: Yes Advance Directive: No Reason Not Provided: N/A Mental Health AdvanceDirective: No Health Care Proxy: No Admission Admission Date Apr 05, 2017 at 11:24 Admission Diagnosis: (1) Major depressive disorder, single episode ICD Code: F32.9 - Major depressive disorder, single episode, unspecified Brief History 04/05/2017 The patient is a 26-year-old man, domiciled in [place] with his , he has 4 kids, he is now unemployed, without any previous psychiatric history, no previous suicidal attempts, no previous psychiatric hospitalizations , cannabis use disorder, no significant medical history, who was brought to the ER because he intentionally ingested about 83 benedryl tabs about an hour prior to arrival with the intention is to kill himself. His witnessed the act on snap chat. He arrives with tachycardia, confusion, tremors, and hyper-reflexia. There is an abrasion on the right side of his forehead made when the police threw him on the floor due to aggressive and combativeness. On the psychiatric evaluation today in the ICU, patient reports that in the last months, especially in the last 2 weeks he has been increasingly depressed in the context of family problems, unemployment, "and other multiple things". Patient says that "there is a lot of things going on my life, I feel very overwhelmed, and I feel like everything is going down the hill and nobody can save me". He says for the last 2 weeks he has been feeling completely hopeless, helpless, with very decreased self-esteem, with permanent sense of guiltiness, poor sleep , weight loss, no appetite and continues and intrusive suicidal thoughts that led to his current suicidal attempt. Patient stated that they have the suicidal thinking he had an argument with his . Patient says that he has been cheating on his with another woman "and I also had a huge problem with that woman that they". "I thought that I was losing everything and I prefer to kill myself". At this moment the patient reports sadness, remorse and he feels "regretful". He is to have suicidal thoughts, but no plan. Patient is willing to accept help and be admitted in psychiatry for treatment. He denies visual and auditory hallucinations. He denies homicidal ideation. Patient is oriented 3, no attention deficit, no fluctuation of consciousness, no delirium, no gross cognitive impairment present. Patient reports daily use of marijuana, occasional use of alcohol. 04/06/2017 patient was seen today for psychiatric reevaluation along with nurse in charge José Miguel and social research assistant Queta. Patient reports that he feels much better today, but still down, with increase guiltiness and "embarrassed". Patient says that in the other hand he is happy that he is alive and he has another opportunity for his mistakes. He does admit that he has been struggling with depression in the last weeks, with increased sensitivity to frustration and criticism, confusion, anxiety, intrusive thoughts, insomnia, decreased appetite and level of energy, and persistent suicidal thoughts. Patient says that he has been reflecting about the importance of being positive and "being there for his family". Patient clarifies that before yesterday when he overdosed he did with the intention to "but that was very confused about moment". Patient is willing to take medications for his depression, also willing to sign voluntary to stay in the hospital as much as he needs. At this moment he denies suicidal and homicidal ideation, he denies visual and auditory hallucinations. Tobacco Use In Past 30 Days: No Tobacco Past 30 Days Alcohol Use: 2-4 Times Per Month Hospital Course Patient is a 26-year-old man, domiciled in [place] with his , he has 4 kids, he is now unemployed, without any previous psychiatric history, no previous suicidal attempts, no previous psychiatric hospitalizations, cannabis use disorder, no significant medical history, who was brought to the ER because he intentionally ingested about 83 Benadryl tabs about an hour prior to arrival with the intention is to kill himself. His witnessed the act on snap chat. Patient was started on bupropion 100mg PO BID for depressive symptoms, trazodone 100mg PO HS for sleep disturbance and continued to be followed by medical team for CAP and was treated with IV ceftriaxone and IV azithromycin. Patient continued to improve as he no longer reported depressive symptoms or having suicidal ideations. Patient upon discharge reported feeling pretty good , reports planning on staying at his parents home for support with plans on reparation of relationship with , employment and continuing his education. Patient agrees to follow up with outpatient appointments for continuity of care and adhere to treatment regimen. Supportive psychotherapy provided. Results Blood Pressure 124 / 72 Vital Signs Date Time Temp Pulse Resp B/P (MAP) Pulse Ox O2 Delivery O2 Flow Rate FiO2 04/09/17 06:04 98.7 88 17 124/72 (89) 94 Laboratory Tests Test 04/07/17 11:41 04/09/17 08:24 Platelet Count 455 TH/MM3 (150-450) Neutrophils (%) (Auto) 70.7 % (16.0-70.0) Monocytes (%) (Auto) 12.3 % (0.0-8.0) Monocytes # (Auto) 1.3 TH/MM3 (0-0.9) Blood Urea Nitrogen 6 MG/DL (7-18) Phosphorus Level 2.3 MG/DL (2.5-4.9) Sodium Level 133 MEQ/L (136-145) Summary of Procedures None Imaging Last Impressions Chest X-Ray 04/07/17 0000 Signed Impressions: Service Date/Time: Wednesday, April 07, 2017 10:14 - CONCLUSION: Bibasilar infiltrates. Mild cardiomegaly. Arie Laura Jr., MD Pending results at discharge: No Medications # of Antipsychotic meds at D/C: 0 Approp Antipsych med options 1 - Minimum of three failed multiple trials of monotherapy. 2 - Documented plan to taper to monotherapy due to previous use of multiple meds OR cross-taper in progress at D/C. 3 - Documentation of augmentation of Clozapine. 4 - Justification other than those listed in allowable values 1-3, document here : Discharge Discharge Date: Apr 09, 2017 Discharge Diagnosis: (1) Major depressive disorder, single episode Diagnosis: Principal ICD Code: F32.9 - Major depressive disorder, single episode, unspecified Mental Status Exam at Disch Appearance/Behavior: appears stated age, healing abrasions on forehead, in hospital gown, calm and cooperative with interview, fair eye contact Speech: normal rate, tone and prosody Mood: pretty good Affect: euthymic TP: linear, future oriented, goal directed TC: denies SI, HI, AVH or delusions Insight/Impulse control/judgment: fair Alert and oriented x 3 Pt Condition on Discharge: Stable Discharge Disposition: Discharge Home Discharge Instructions Diet Instructions: As Tolerated, No Restrictions Activities you can perform: Regular-No Restrictions Scheduled Appointment: [facility] Appointment Date: Apr 13, 2017 Appointment Time: 03:00pm Discharge Time > 30 minutes Discharge/Advance Care Plan Health Problems: (1) Major depressive disorder, single episode Goals to promote your health * To prevent worsening of your condition and complications * To maintain your health at the optimal level Directions to meet your goals Take your medications as prescribed Follow your dietary instruction Follow activity as directed Keep your appointments as scheduled Take your immunizations and boosters as scheduled If your symptoms worsen call your PCP, if no PCP go to Urgent Care Center or Emergency Room For 08/03 questions related to your inpatient stay or results of tests pending at discharge, please contact Dr. Emerson Mcneil at Smoking is Dangerous to Your Health. Avoid second hand smoking Emerson Mcneil MD Apr 09, 2017 18:02
== END 2017-04-09 14:00 | disposition home or self-care (01) | DRG 885 ==
LOC: H4EA 11:24
PROVIDERS: ADMIT Student in an Organized Health Care Education/Training Program; ATTEND Student in an Organized Health Care Education/Training Program
DX: F33.2 Major depressive disorder, recurrent severe without psychotic features (principal); G92 Toxic encephalopathy; J94.2 Hemothorax; E87.6 Hypokalemia; F41.9 Anxiety disorder, unspecified; F12.90 Cannabis use, unspecified, uncomplicated; G47.00 Insomnia, unspecified; S00.03XA Contusion of scalp, initial encounter; T45.0X2A Poisoning by antiallergic and antiemetic drugs, intentional self-harm, initial encounter; X58.XXXA Exposure to other specified factors, initial encounter; Y92.9 Unspecified place or not applicable
CPT/HCPCS: 71010; 80048; 83735; 84100; 85025; J0456; J0696; J1650; J3480; J7030; J7050